=== PATIENT | female | born 1940 | race Caucasian/White ===

== ENCOUNTER 2019-12-14 15:03 | Outpatient (CLI) | payer MEDICARE, SELFPAY ==
--- NOTE | 2019-12-14 15:30 | CT_ITS ---
WS: [id number] CT LUMBAR SPINE TECHNIQUE: Noncontrast CT of the lumbar spine with coronal and sagittal reformatted images. CLINICAL INFORMATION: Low back pain COMPARISON: DLP: 1837.[address] scans at [facility] use at least one of these dose optimization techniques: automat ed exposure control; mA and/or kV adjustment per patient size (includes targeted exams where dose is matched to clinical indication); or iterative reconstruction. FINDINGS: Again seen is moderate to severe compression of the inferior endplate L1 with 50-60% loss vertebral b juan height. This is not significantly changed from previous. Additional moderate compression L4 infer ior endplate with loss of approximately 50% vertebral body height also similar in appearance. No sign ificant retropulsion. In addition there is biconcave compression of the T12 vertebral body with loss of approximately 60% vertebral body height centrally. Minimal retropulsion posterior superior cortex with mild central can al stenosis. T12 was not included on the prior CT lumbar spine. This does appear new since the MRI Se pt2017. No significant surrounding paravertebral edema. T11-T12: Mild disc bulging with slight effacement of the ventral thecal sac.. Mild bilateral foramina l narrowing. Mild central canal stenosis. T12-L1: Mild annular bulging. Mild facet arthropathy. Spinal canal and foramen are patent. L1-L2: Mild annular bulging. Spinal canal is patent. Tiny left foraminal protrusion with mild left fo raminal narrowing. L2-L3: Advanced disc space narrowing with disc osteophyte complex. Slight effacement of ventral theca l sac with narrowing of the subarticular recess. Mild right greater than left foraminal narrowing. Mi ld facet arthropathy. L3-L4: Moderate diffuse annular bulging in combination with facet arthropathy and ligamentum flavum h ypertrophy results in moderate to severe central canal stenosis. This is unchanged. Mild bilateral fo raminal narrowing. L4-L5: Disc desiccation with vacuum disc phenomenon. Disc bulging in combination with facet arthropat hy ligament flavum hypertrophy results in severe central canal stenosis. This is unchanged since March 24, 2019. Severe bilateral foraminal narrowing impinges the exiting left greater than right L4 nerve roots. Moderate facet arthropathy. L5-S1: Mild disc bulging with slight effacement of ventral thecal sac. Impingement on the right S1 ne rve root. Mild right and no significant left foraminal narrowing. Moderate facet arthropathy. Emphysematous changes in the lung bases. Dense aortic calcification and proximal renal artery calcifi cation. No significant abdominal aortic aneurysm. CT/CT lumbar spine wo con* [id number] IMPRESSION: 1. Compression fractures inferior endplate at L1 and L4 not significantly haskins ged since March 24, 2019. 2. Biconcave compression fracture at T12 with loss of approximately 60% verteb ral body height centrally. T12 was not included on the prior CT but this is lik leyla chronic. No significant surrounding paravertebral soft tissue edema to jael linwood recent compression. This is new since the MRI in 2018 3. Minimal retropulsion of the posterior superior cortex at T12 with mild cent ral canal stenosis. 4. Moderate central canal stenosis L3-4 and severe central canal stenosis L4-5 is unchanged. 5. Multilevel foraminal narrowing described above.
== END 2019-12-14 15:04 | disposition home or self-care (01) ==
LOC: RADWPI 15:13
PROVIDERS: Family Provider Family Medicine; PCP Family Medicine; Visit Provider Licensed Practical Nurse
DX: M54.5 Low back pain (principal); M48.56XA Collapsed vertebra, not elsewhere classified, lumbar region, initial encounter for fracture; X58.XXXA Exposure to other specified factors, initial encounter; M48.061 Spinal stenosis, lumbar region without neurogenic claudication
CPT/HCPCS: 72131

== ENCOUNTER → 2020-02-29 13:18 | Outpatient (BNVA) | payer MEDICARE, SELFPAY | PROVIDERS: Family Provider Family Medicine; PCP Family Medicine; Visit Provider Specialist | DX: G30.9 Alzheimer's disease, unspecified (principal); F02.80 Dementia in other diseases classified elsewhere, unspecified severity, without behavioral disturbance, psychotic disturbance, mood disturbance, and anxiety | CPT/HCPCS: 99214 ==

== ENCOUNTER 2020-11-16 05:52 | Emergency (ER) | payer MEDICARE, SELFPAY ==
[2020-11-16 06:06] VITALS: BP 132/77; PULSE 81; RESP 16; TEMP 36.7; O2SAT 96; BMI 28.3
[2020-11-16 06:37] VITALS: BP 143/81; PULSE 82; O2SAT 96
--- NOTE | 2020-11-16 06:42 | ED_ITS ---
HPI - Back Pain/Injury General: Chief Complaint: Back Pain/Injury Stated Complaint: compression fracture,bulging disk, can't get up Time Seen by Provider: 11/16/20 05:55 History of Present Illness: HPI Narrative: 80-year-old female presents to the emergency room with complaint of low back pain. She was recently admitted to [facility] for similar symptoms and was there for 2 days. Approximately 3 years ago evidently she had a compression fracture she had a CT while at [place] and per her report had other compression fractures. She denies any recent falls. No falls since leaving the hospital in [place]. She denies dysuria urgency or frequency denies shortness of breath or chest pain. When seen in the exam room she is doubled over in a wheelchair and does not wish to sit up due to the pain. MD elicited complaint: back pain Pertinent past history: prior back pain and other (History lumbar compression fractures) Onset (ago): week(s) Timing: constant Severity: severe Similar Symptoms Previously: Yes Quality: sharp and spasming Location: lumbar spine Radiation: none Exacerbating factors: movement, sitting upright and walking Relieving factors: immobilization Associated symptoms: Reports arthralgias, difficulty walking, myalgias and weakness; Deny abdominal pain, chills, change in bowel habits, dysuria, fatigue, fecal incontinence, fever(s), hematuria, nausea, numbness, syncope, tingling/numbness/burning, urinary frequency, urinary urgency or vomiting Treatments prior to arrival: prescription analgesics Review of Systems Const: Denies: fever(s), chills or fatigue ENMT: Denies: throat pain, ear or mastoid pain, nasal discharge or nasal congestion Card: Denies: syncope Resp: Denies: dyspnea, productive cough or non-productive cough GI: Denies: abdominal pain, nausea, vomiting, fecal incontinence or change in bowel habits : Denies: dysuria, urinary urgency or hematuria Skin/Breast: Denies: rash or pruritus Neuro: Reports: difficulty walking PFS ED PFSH: Medical History (Updated 11/16/20 @ 09:36 by Arash Dodd DO) Alzheimer's dementia without behavioral disturbance Anticoagulation adequate with anticoagulant therapy Eliquis Atrial fibrillation CKD (chronic kidney disease) Dyslipidemia HTN (hypertension) Lumbar compression fracture Lumbar stenosis with neurogenic claudication Surgical History (Updated 11/16/20 @ 06:47 by Arash Dodd DO) History of cholecystectomy (~2014) History of hip surgery (~2019) Closed reduction with intramedullary nailing with proximal and distal interlocking to treat left intertrochanter hip fracture History of tonsillectomy Family History Father Stroke Mother Lung cancer Social History Smoking and tobacco status: never smoked Alcohol intake: never Household members: family Housing: House Marital status: / Current occupational status: retired History of recent travel: No Physical Exam HENMT: COMMON NORMALS: normocephalic, atraumatic and hearing grossly normal bilaterally HEAD & SCALP: normocephalic and atraumatic Neck/C-Spine: COMMON NORMALS: no JVD Resp: COMMON NORMALS: normal respiratory effort, No retractions, No use of accessory muscles and clear to auscultation bilaterally AUSCULTATION: clear to auscultation bilaterally Cardio: COMMON NORMALS: no JVD, regular rate, regular rhythm and No murmurs present (Cardio) RATE: regular rate RHYTHM: regular rhythm Extremity: COMMON NORMALS: normal to inspection, capillary refill normal, no clubbing, cyanosis or edema, no calf tenderness and no pedal edema Neuro: OTHER: Dorsum plantar flex strength 5 of 5 at the ankles. Sensation normal straight leg raising negative Course Vital Signs: Vital signs: Vital Signs Temperature 98.1 F 11/16/20 06:06 Pulse Rate 88 11/16/20 10:41 Respiratory Rate 18 11/16/20 10:41 Blood Pressure 147/77 11/16/20 10:41 Pulse Oximetry 98 11/16/20 10:41 MDM - Back Pain/Injury MDM Narrative: Medical decision making narrative: Reviewed findings the patient T11 fracture still present reviewed the CT done at [place] as well. There is really nothing to be done on an inpatient basis we will try to get her set up an outpatient basis with Dr. Smith for evaluation for kyphoplasty. They are concerned about her functional daily abilities they already have home health. Offered to look at getting her placed in the [facility] however in the current pandemic environment that will be very difficult. We will increase her home pain medications and have case management review to see if she can find other options for patient assistance at home. Offered to have case management set up for [facility] placement today although I cautioned him that in this to the current environment with the pandemic that is exceedingly difficult. Had 2 prolonged conversations over 20 minutes each discussing this. He was hoping that we would be admit the patient emergently do a kyphoplasty discussed with him that Lorena how a kyphoplasty is done is usually done as an outpatient after outpatient consultation. While we are in the room her pain is well controlled she is able to sit up and even at times wants to get up into the bed. He is quite concerned whether or not he be able to care for at home which is why we had offered the [facility] placement. When I offer this is she he states that he can do all of that care at home on his own and that it really would not change anything significantly. We will try to get her set up with Dr. Smith as soon as we are able because any worsening or change she can return to be reevaluated. Discussed with him that the CT does not show significant change. Lab Data: Labs: Lab Results 11/16/20 11/16/20 11/16/20 Range/Units 06:47 06:47 06:48 WBC 10.0 (4.0-10.0) 10^3/ uL RBC 3.83 L (4.1-5.3) 10^6/u L Hgb 12.7 (11.5-15.3) g/dL Hct 38.9 (37.0-47.0) % MCV 101.6 H (81-99) fL MCH 33.2 (28.0-34.0) pg MCHC 32.6 (30.0-36.0) g/dL RDW 13.5 (12.1-15.1) % Plt Count 271 (130-400) 10^3/c mm MPV 9.5 (7.4-10.4) fL Neut % (Auto) 61.2 % Lymph % (Auto) 26.4 % [place] % (Auto) 8.9 % Eos % (Auto) 1.4 % Baso % (Auto) 0.6 % Neut # (Auto) 6.10 (1.8-7.7) 10^3/u L Lymph # (Auto) 2.6 (0.8-4.8) 10^3/u L [place] # (Auto) 0.9 (0.2-0.9) 10^3/u L Eos # (Auto) 0.1 (0.0-0.8) 10^3/u L Baso # (Auto) 0.1 (0.0-0.1) 10^3/u L Nucleated RBC % (a uto) 0 % Nucleated RBCs # 0.0 /100WBC Sodium 135 L (136-145) mmol/L Potassium 3.7 (3.5-5.1) mmol/L Chloride 98 (98-107) mmol/L Carbon Dioxide 28 (22-29) mmol/L Anion Gap 12.7 (5-19) BUN 10 (8-23) mg/dL Creatinine 0.6 (0.5-0.9) mg/dL GFR Calculation Not Reportable Glucose 109 (65-115) mg/dL Calculated Osmolal ity 280 L (285-295) mOsm/k g Calcium 9.1 (8.5-10.5) mg/dL Total Bilirubin 0.7 (0.15-1.2) mg/dL AST 39 H (0-32) U/L ALT 48 H (0-33) U/L Alkaline Phosphata se 219 H (35-105) IU/L Total Protein 6.9 (6.6-8.7) g/dL Albumin 3.6 (3.5-5.2) g/dL Globulin 3.3 (1.3-4.6) g/dL Urine Color Yellow (Yellow) Urine Appearance Clear (CLEAR) Urine pH 6.0 (5-7) Ur Specific Gravit y 1.010 (1.005-1.030) Urine Protein Neg (Negative) Urine Glucose (UA) Norm (Normal) Urine Ketones Negative (Negative) Urine Blood Neg (Negative) Urine Nitrate Negative (Negative) Urine Bilirubin Neg (Negative) Urine Urobilinogen 1 H (Negative) mg/dL Ur Leukocyte [place] Negative (Negative) Discharge Plan Discharge Patient Disposition: Home Clinical Impression: Compression fracture of thoracic spine, non-traumatic, Alzheimer's dementia without behavioral disturbance Condition: Stable Prescriptions: New hydrocodone-acetaminophen 10-325 mg tablet See Rx Instructions .ROUTE .COMPLEX PRN (Reason: pain) Qty: 30 RF: 0 No Action donepezil 10 mg tablet 10 mg PO QDAY Qty: 30 RF: 11 cetirizine 10 mg capsule PO RF: 0 meloxicam 15 mg tablet 15 mg PO DAILY RF: 0 gabapentin 300 mg capsule 300 mg PO BID RF: 0 potassium chloride 10 mEq tablet extended release 10 meq PO QDAY RF: 0 diltiazem HCl 90 mg capsule,extended release 12 hr 90 mg PO TID RF: 0 hydrocodone-acetaminophen 10-325 mg tablet 1 tab PO Q4H PRNRF: 0 furosemide 20 mg tablet 20 mg PO QDAY RF: 0 alprazolam 0.5 mg tablet 0.5 mg PO QID PRN (Reason: anxiety) RF: 0 carvedilol 6.25 mg tablet 6.25 mg PO BID RF: 0 levothyroxine 25 mcg capsule 25 mcg PO QDAY RF: 0 bupropion HCl 150 mg tablet sustained-release 12 hr 150 mg PO BID RF: 0 vitamin D3-vitamin K2 (MK4) 1,000-100 unit-mcg tablet 1 tab PO QDAY RF: 0 Eliquis 5 mg tablet 5 mg PO BID 90 Days Qty: 180 RF: 3 Discharge Orders: Discharge ED (Routine); Ordered 11/16/20 Ordered By: Arash Dodd Referrals: Bianka Lowery DO [Primary Care Provider] - Discharge Activity: Limit activity as instructed Activity Restrictions/Additional Instructions: Case management will call with appointment for Dr. Smith for evaluation for kyphoplasty. Increase pain medications to 1-2 every 4 to 6 hours as needed follow-up with your primary care doctor Coding Level of Care Code ED Learning Support Resource Room Teacher for Chg Fwd Exam Detailed
[2020-11-16 07:08] LABS: Basophils # 0.1 10^3/uL (0.0-0.1); Basophils % 0.6 %; Eosinophils # 0.1 10^3/uL (0.0-0.8); Eosinophils % 1.4 %; Hematocrit 38.9 % (37.0-47.0); Hemoglobin 12.7 g/dL (11.5-15.3); Lymphocytes # 2.6 10^3/uL (0.8-4.8); Lymphocytes % 26.4 %; Mean Corpuscular HGB Conc 32.6 g/dL (30.0-36.0); Mean Corpuscular Hemoglobin 33.2 pg (28.0-34.0); Mean Corpuscular Volume 101.6 fL (81-99); Mean Platelet Volume 9.5 fL (7.4-10.4); Monocytes # 0.9 10^3/uL (0.2-0.9); Monocytes % 8.9 %; Neutrophils % 61.2 %; Nucleated Red Blood Cells % 0 %; Platelet Count 271 10^3/cmm (130-400); Red Blood Count 3.83 10^6/uL (4.1-5.3); Red Cell Distribution Width 13.5 % (12.1-15.1)
[2020-11-16] MEDS: morphine 4 mg/mL SDV 1 mL IVP (07:08)
[2020-11-16 07:10] LABS: Add Urine Microscopic? NO
[2020-11-16 07:18] LABS: Bilirubin Urine Neg (Negative); Blood Urine Neg (Negative); Glucose Urine UA Norm (Normal); Ketones Urine Negative (Negative); Leukocyte Esterase Urine Negative (Negative); Nitrate Urine Negative (Negative); Protein Urine Neg (Negative); Urine Appearance Clear (CLEAR); Urine Color Yellow (Yellow); Urobilinogen Urine 1 mg/dL (Negative)
[2020-11-16 07:26] LABS: Alanine Aminotransferase 48 U/L (0-33); Albumin Level 3.6 g/dL (3.5-5.2); Alkaline Phosphatase 219 IU/L (35-105); Anion Gap 12.7 (5-19); Aspartate Amino Transferase 39 U/L (0-32); Blood Urea Nitrogen 10 mg/dL (8-23); Calcium 9.1 mg/dL (8.5-10.5); Carbon Dioxide 28 mmol/L (22-29); Chloride 98 mmol/L (98-107); Globulin 3.3 g/dL (1.3-4.6); Glucose 109 mg/dL (65-115); Osmolality Calculated 280 mOsm/kg (285-295); Potassium 3.7 mmol/L (3.5-5.1); Sodium 135 mmol/L (136-145); Total Bilirubin 0.7 mg/dL (0.15-1.2); Total Protein 6.9 g/dL (6.6-8.7)
--- NOTE | 2020-11-16 07:58 | CT_ITS ---
WS: [id number] CT LUMBAR SPINE TECHNIQUE: Noncontrast CT of the lumbar spine with coronal and sagittal reformatted images. CLINICAL INFORMATION: compression fx COMPARISON: CT December 14, 2019 DLP: 1868.[address] scans at [facility] use at least one of these dose optimization techniques: automat ed exposure control; mA and/or kV adjustment per patient size (includes targeted exams where dose is matched to clinical indication); or iterative reconstruction. FINDINGS: Mild lumbar curve. Multiple chronic appearing compression deformities unchanged since December 14 20 at T12, L1, and L4 with anterior wedging. No new compression fractures in the lumbar spine. No hig h-grade central canal stenosis. L1-L2: Normal. L2-L3: Disc desiccation with mild disc bulging. Spinal canal and foramen are patent. L3-L4: Mild disc bulging with a broad-based central protrusion. Moderate central canal stenosis. Mild right greater than left foraminal narrowing. Mild facet arthropathy. L4-L5: Mild disc bulging with moderate to severe central canal stenosis. Broad-based central disc pro trusion. Impingement traversing L5 nerve roots. Mild facet arthropathy. Moderate to severe bilateral foraminal narrowing. L5-S1: Mild disc bulging with slight effacement of ventral thecal sac. Mild bilateral foraminal narro wing right greater than left. Small bilateral pleural effusions. Visualized pelvic bony structures: Normal. Paravertebral soft tissues: Normal. CT/CT lumbar spine wo con* [id number] IMPRESSION: 1. Multiple chronic appearing compression fractures lumbar spine unchanged sin ce December 14, 2019 these are unchanged at T12, L1, and L4. 2. Moderate central canal stenosis L3-4 and severe central canal stenosis L4-5 due to broad-based central disc protrusions. 3. Moderate bilateral L4-5 foraminal protrusions.
--- NOTE | 2020-11-16 07:58 | CT_ITS ---
WS: [id number] CT THORACIC SPINE TECHNIQUE: Noncontrast CT of the thoracic spine with coronal and sagittal reformatted images. CLINICAL INFORMATION: compression fx/back pain COMPARISON: None. DLP: 1621.[address] scans at [facility] use at least one of these dose optimization techniques: automat ed exposure control; mA and/or kV adjustment per patient size (includes targeted exams where dose is matched to clinical indication); or iterative reconstruction. FINDINGS: No prior thoracic spine comparisons. Moderate thoracic kyphosis. Mild compression superior endplate T 11 with a small fracture cleft. Loss of approximately 10% vertebral body height. This is likely acute to subacute. No retropulsion. Additional chronic appearing compression fractures with anterior wedgi ng at T6, T8, and T12. Small bilateral pleural effusions. CT/CT thoracic spin wo con* [id number] IMPRESSION: 1. Moderate thoracic kyphosis with multiple compression deformities. 2. Acute to subacute appearing fracture of the superior endplate T11 with mini mal loss vertebral body height. No retropulsion. 3. Chronic appearing compression fractures anterior wedging at T6, T8, and T12 . 4. No high-grade central canal stenosis. 5. Small bilateral pleural effusions.
[2020-11-16] MEDS: morphine 4 mg/mL SDV 1 mL 6 MG IVP (08:18)
[2020-11-16 08:47] VITALS: BP 157/77; PULSE 88; RESP 18; O2SAT 95
[2020-11-16 09:47] VITALS: BP 147/77; PULSE 88; RESP 18; O2SAT 98
[2020-11-16 10:41] VITALS: BP 147/77; PULSE 88; RESP 18; O2SAT 98
--- NOTE | 2020-11-16 15:09 | DCPLANNER ---
mortgage processing manager was asked to schedule a follow up appointment for patient with Dr. Smith at ortho. mortgage processing manager called the ortho clinic, spoke with Tawnya, gave clinic patients information. mortgage processing manager was told that patients information would be printed and reviewed. Clinic will call patient with appointment information.
--- NOTE | 2020-11-19 16:02 | DCPLANNER ---
Patient has a follow up appointment scheduled for Thursday, November 20, 2020 at 1:[address] Smith. Clinic will call patient with appointment information.
--- NOTE | 2020-11-23 14:49 | DCPLANNER ---
Patient had a follow up appointment scheduled for 11.20.20 with ortho - patient did attend appointment.
== END 2020-11-16 10:41 | disposition home or self-care (01) ==
PROVIDERS: Emergency Provider Family Medicine; PCP Family Medicine
DX: M48.54XA Collapsed vertebra, not elsewhere classified, thoracic region, initial encounter for fracture (principal); G30.9 Alzheimer's disease, unspecified; F02.80 Dementia in other diseases classified elsewhere, unspecified severity, without behavioral disturbance, psychotic disturbance, mood disturbance, and anxiety; Z79.01 Long term (current) use of anticoagulants; I48.91 Unspecified atrial fibrillation; I10 Essential (primary) hypertension; E78.5 Hyperlipidemia, unspecified
CPT/HCPCS: 12345; 72128; 72131; 80053; 81003; 85025; 96374; 96375; 99283; J2270

== ENCOUNTER → 2020-12-13 12:14 | Outpatient (BNVA) | payer MEDICARE, SELFPAY | PROVIDERS: PCP Family Medicine; Visit Provider Orthopaedic Surgery | DX: Z20.822 Contact with and (suspected) exposure to COVID-19 (principal) | CPT/HCPCS: 87635 ==

== ENCOUNTER 2020-12-17 10:38 | Day surgery (SDC) | payer MEDICARE, SELFPAY ==
[2020-12-14 15:43] VITALS: BMI 22.3
--- NOTE | 2020-12-17 | SCC_ITS ---
Procedure Done: T8 kyphoplasty T11 kyphoplasty L1 Kyphoplasty 54.7 seconds of fluoroscopic guidance, for a cumulative dose of 6.48 mGy, was provided to Dr. Smith by the radiology department. C-arm images of the thoracolumbar junction were saved for the patient's permanent record. [facility]
--- NOTE | 2020-12-17 09:45 | ANES.PREANE2 ---
Pre-Anesthetic Assessment Pre-Anesthetic Assessment: Height/Weight: Height 1.65 m Weight 60.781 kg Preop Diagnosis: back pain Proposed Procedure: Operation Date: 12/17/20 11:45 Proposed Procedures p Kyphoplasty T8, T11, & L1/ 12513 [id number] S32.000A S22.000A(Not Applicable) - Malachi Smith DO Familial anesthetic complications: none Was Beta Yaa taken within 24 hours: Yes Last intake: NPO > 8 hrs Social: Social History: No alcohol and No tobacco Exam: Pre-Anes Outpt Exam: alert, oriented x 3, clear to auscultation bilaterally and regular rate & rhythm Airway: Cervical ROM: WNL MP: 3 Dentition: Loose and Other (multiple missing teeth) CV/HEM: CV/HEM: Afib and HTN : : Chronic renal Insufficiency Metabolic: Metabolic: Hyperlipidemia and Thyroid Anesthetic Plan: ASA status: 3 Anesthesia: General Risk of > 500 ml blood loss (7ml/kg in children): No PFSH Anesthesia PFSH: Medical History Alzheimer's dementia without behavioral disturbance Anticoagulation adequate with anticoagulant therapy Eliquis Atrial fibrillation CKD (chronic kidney disease) Dyslipidemia HTN (hypertension) Lumbar compression fracture Lumbar stenosis with neurogenic claudication Surgical History History of cholecystectomy (~2013) History of hip surgery (~2019) Closed reduction with intramedullary nailing with proximal and distal interlocking to treat left intertrochanter hip fracture History of tonsillectomy Family History Father Stroke Mother Lung cancer Social History Smoking and tobacco status: never smoked Alcohol intake: never Household members: family Housing: House Marital status: / Current occupational status: retired History of recent travel: No Data Anesthesia Cardiac Studies: No Data to Display
--- NOTE | 2020-12-17 10:43 | SC_ITS ---
WS: [id number] C-ARM RADIOGRAPHS SPINE; 5 IMAGES HISTORY: surgery COMPARISON: None available. Intraoperative imaging during kyphoplasty. Kyphoplasty have been performed at 3 different levels. SC/C-arm FL for Kyphoplasty IMPRESSION: Intraoperative imaging during kyphoplasty's.
[2020-12-17] MEDS: sodium chloride 0.9% 1,000 ML 30 ML IV (12:07)
--- NOTE | 2020-12-17 12:36 | W.PM.OPSUD ---
Surgery/Procedure H&P Update DATE OF PROCEDURE: December 17, 2020 DATE H&P PERFORMED: 12/13/20 H&P UPDATE INFORMATION: I have reviewed H&P completed within last 30 days, I have examined patient prior to procedure and No changes to prior documentation PREOP DIAGNOSIS: back pain PLANNED PROCEDURE: Operation Date: 12/17/20 11:45 Proposed Procedures p Kyphoplasty T8, T11, & L1/ [id number] S32.000A S22.000A(Not Applicable) - Malachi Smith DO
[2020-12-17] MEDS: clindamycin 600 MG/50 ML PREMIX 100 MG IV (12:55)
[2020-12-17] MEDS: iohexol 300 mg/mL 50 mL Btl (OR ONLY) XX (14:00)
--- NOTE | 2020-12-17 14:14 | PM.OP ---
Operative Report Date of procedure: December 17, 2020 Pre-op Diagnosis: T8, T11, L1 acute compression fracture Post-op diagnosis: same Procedure Done: T8 kyphoplasty T11 kyphoplasty L1 Kyphoplasty Surgeon: Malachi Smith Anesthesia: General Estimated blood loss (mL): 5 Condition: stable Disposition: PACU Procedure: T8 kyphoplasty T11 kyphoplasty L1 Kyphoplasty Patient brought to the operative suite after undergoing anesthesia was placed in the prone position all areas impingement well-padded. Patient's prepped and draped normal sterile fashion. Using 2C arms AP and lateral images were focused on the T11 segment first. A Jamshidi needle was then inserted into the T11 pedicle on the left side. Then a drill was inserted. And then a balloon was inserted and inflated. This is observed on AP and lateral fluoroscopy. Next attention was brought to the L1 level this steps were repeated. And balloon was inflated in the L1 level. And then cement was placed into the T11 and L1 levels. Done under lateral fluoroscopy. Once the cement hardened the tubes removed and the process was then brought up to the T8 level. Again the Jamshidi was inserted followed by the drill followed by the balloon and then cement. Was a cement was hardened and the surgeon to was removed. AP lateral fluoroscopy ensured that cement was in appropriate position. Stab incisions were closed with Steri-Strips and patient was transferred to the PACU in stable condition.
[2020-12-17 14:27] VITALS: BP 105/78; PULSE 111; RESP 12; TEMP 36.1; O2SAT 100
--- NOTE | 2020-12-17 14:32 | P.PCN_ITS ---
PACU note PACU note: VSS, Good respiratory effort, report to FLEXIBLE BABYSITTER Post-Anesthesia Exam: awake
--- NOTE | 2020-12-17 14:32 | PM.PACU ---
PACU note PACU note: VSS, Good respiratory effort, report to ZONE MANAGER Post-Anesthesia Exam: awake
[2020-12-17 14:35] VITALS: BP 92/57; PULSE 130; RESP 12; O2SAT 100
[2020-12-17 14:40] VITALS: BP 115/58; PULSE 131; RESP 20; O2SAT 100
[2020-12-17 14:45] VITALS: BP 128/62; PULSE 135; RESP 14; TEMP 36.6; O2SAT 96
[2020-12-17 14:52] VITALS: BP 116/85; PULSE 124; RESP 18; O2SAT 100
[2020-12-17 15:12] VITALS: BP 107/80; PULSE 119; RESP 18; O2SAT 98
--- NOTE | 2020-12-17 15:48 | ANE.PACU2 ---
Inpatient post-anesthesia follow up: Airway intact: Yes Vital signs: Temperature 98 F Pulse Rate 119 Respiratory Rate 18 Blood Pressure 107/80 Pulse Oximetry 98 Oxygen Delivery Me thod Room Air Oxygen Flow Rate 8 Fraction of Inspir ed Oxygen Hydration adequate: Yes Nausea and vomiting: No Pain level: 1 Mental status: Baseline
== END 2020-12-17 16:28 | disposition home or self-care (01) ==
PROVIDERS: PCP Family Medicine; Visit Provider Orthopaedic Surgery
PROC: (CPT 22513; principal; 2020-12-17 11:35)
DX: M48.54XA Collapsed vertebra, not elsewhere classified, thoracic region, initial encounter for fracture (principal); M48.56XA Collapsed vertebra, not elsewhere classified, lumbar region, initial encounter for fracture; I48.91 Unspecified atrial fibrillation; E78.5 Hyperlipidemia, unspecified; I12.9 Hypertensive chronic kidney disease with stage 1 through stage 4 chronic kidney disease, or unspecified chronic kidney disease; N18.9 Chronic kidney disease, unspecified
CPT/HCPCS: 22513; 22515 ×2; 72080; 76000; J1100; J2370; J2405; J2704; J2710; J3010; J3490; J7030

== ENCOUNTER → 2021-01-21 14:04 | Outpatient (BNVA) | payer MEDICARE, SELFPAY | PROVIDERS: PCP Family Medicine; Visit Provider Anesthesiology Pain Medicine | DX: M54.16 Radiculopathy, lumbar region (principal); M48.062 Spinal stenosis, lumbar region with neurogenic claudication; S32.000A Wedge compression fracture of unspecified lumbar vertebra, initial encounter for closed fracture; X58.XXXA Exposure to other specified factors, initial encounter; Z79.891 Long term (current) use of opiate analgesic | CPT/HCPCS: 99205 ==

== ENCOUNTER 2021-02-12 13:05 | Outpatient (RCR) | payer MEDICARE, SELFPAY | END 2021-03-01 23:59 | disposition home or self-care (01) | LOC: SPT 13:05 | PROVIDERS: PCP Family Medicine; Referring Provider Orthopaedic Surgery; Visit Provider Orthopaedic Surgery | DX: Z47.89 Encounter for other orthopedic aftercare (principal) | CPT/HCPCS: 97110; 97116; 97162; 97530 ==

== ENCOUNTER 2021-03-02 06:00 | Outpatient (RCR) | payer MEDICARE, SELFPAY | END 2021-04-01 23:59 | disposition home or self-care (01) | LOC: SPT 06:00 | PROVIDERS: PCP Family Medicine; Referring Provider Orthopaedic Surgery; Visit Provider Orthopaedic Surgery | DX: Z47.89 Encounter for other orthopedic aftercare (principal) | CPT/HCPCS: 97110 ==

== ENCOUNTER → 2021-06-24 15:30 | Outpatient (BNVA) | payer MEDICARE, SELFPAY | PROVIDERS: PCP Family Medicine; Visit Provider Specialist | DX: G30.9 Alzheimer's disease, unspecified (principal); F02.80 Dementia in other diseases classified elsewhere, unspecified severity, without behavioral disturbance, psychotic disturbance, mood disturbance, and anxiety | CPT/HCPCS: 99214 ==

== ENCOUNTER → 2021-10-01 15:11 | Outpatient (BNVA) | payer MEDICARE, SELFPAY | PROVIDERS: PCP Family Medicine; Visit Provider Specialist | DX: G30.9 Alzheimer's disease, unspecified (principal); F02.80 Dementia in other diseases classified elsewhere, unspecified severity, without behavioral disturbance, psychotic disturbance, mood disturbance, and anxiety | CPT/HCPCS: 99213; 99214 ==

== ENCOUNTER 2021-11-19 15:03 | Emergency (ER) | payer MEDICARE, SELFPAY ==
--- NOTE | 2021-11-19 15:19 | ED_ITS ---
Documented by User: Arash Dodd DO 11/27/21 11:16 HPI - General Adult General: Chief complaint: COVID symptoms Stated complaint: DEMENTIA, SICK, FEVER Time Seen by Provider: 11/19/21 15:12 History of Present Illness: HPI narrative: 81-year-old female who presents to the emergency room with via EMS complaining of increased weakness and confusion fever. Family stated that she had some kind of viral illness and wants her to be seen. Patient has a history of dementia. She is able to relate that she lives at home but is not really able to give any other specific she denies any chest pain difficulty breathing denies any abdominal pain denies dysuria urgency or frequency however not sure how accurate these responses are. She is in a somewhat position and is difficult to engage in anything other than yes or no questions. Onset (ago): minute(s) Location: chest Severity: mild Pain Consistency: constant Relieving factors: none Exacerbating factors: none Associated symptoms: Reports cough; Deny chest pain, confusion, diaphoresis, decreased appetite, dyspnea, fevers/chills, headache(s), malaise, nausea, rash, palpitations, seizures, short of breath, syncope, vomiting or weakness Treatments prior to arrival: none Review of Systems Const: Denies: malaise or diaphoresis Card: Denies: chest pain, palpitations or syncope Resp: Denies: dyspnea GI: Denies: nausea or vomiting Skin/Breast: Denies: rash Neuro: Denies: headache(s) or confusion PFSH ED PFSH: Medical History Alzheimer's dementia without behavioral disturbance Anticoagulation adequate with anticoagulant therapy Eliquis Atrial fibrillation CKD (chronic kidney disease) Dyslipidemia HTN (hypertension) Lumbar compression fracture Lumbar stenosis with neurogenic claudication Surgical History History of cholecystectomy (~2013) History of hip surgery (~2019) Closed reduction with intramedullary nailing with proximal and distal interlocking to treat left intertrochanter hip fracture History of tonsillectomy Family History Father Stroke Mother Lung cancer Social History (Reviewed 11/19/21 @ 15:59 by KRISSY Bailey Second hand smoke exposure: No Alcohol intake: never Household members: family Housing: House Marital status: / Current occupational status: retired History of recent travel: No Physical Exam Const: GENERAL APPEARANCE: cooperative and comfortable ORIENTAT ION/CONSCIOUSNESS: Yes awake HENMT: COMMON NORMALS: normocephalic, atraumatic and hearing grossly normal bilaterally HEAD & SCALP: normocephalic and atraumatic Neck/C-Spine: COMMON NORMALS: no JVD Resp: COMMON NORMALS: normal respiratory effort, No retractions, No use of accessory muscles and clear to auscultation bilaterally AUSCULTATION: clear to auscultation bilaterally Cardio: COMMON NORMALS: no JVD, regular rate, regular rhythm and No murmurs present (Cardio) RATE: regular rate RHYTHM: regular rhythm GI: COMMON NORMALS: Soft to palpation and No hepatosplenomegaly present AUSCULTATION: Yes normoactive bowel sounds PALPATION: Yes Soft to palpation, No Tenderness to palpation present (GI), No Guarding due to palpation present (GI) and Yes No hepatosplenomegaly present Extremity: COMMON NORMALS: normal to inspection, capillary refill normal, no clubbing, cyanosis or edema, no calf tenderness and no pedal edema Skin: COMMON NORMALS: no rashes or lesions noted GENERAL SKIN EXAM: no rashes or lesions noted Course Vital Signs: Vital signs: Vital Signs Temperature 100.3 F H 11/19/21 15:27 Pulse Rate 89 11/19/21 22:43 Respiratory Rate 16 11/19/21 22:43 Blood Pressure 122/63 11/19/21 22:43 Pulse Oximetry 97 11/19/21 22:43 MDM - General Adult MDM Narrative Medical decision making narrative: Labs imaging and EKGs reviewed on the chart. Patient has COVID-19 with oxygen supplementation is doing well will discharge home with oxygen and dexamethasone monitor home O2 sats if has any worsening return to the emergency room.Follow-up with primary care tomorrow. Medical Records Attestation: I reviewed the patient's medical records. Lab Data Attestation: I reviewed the patient's lab results. Result diagrams: 11/19/21 19:50 11/19/21 19:50 Labs: Lab Results 11/19/21 11/19/21 11/19/21 15:38 17:28 19:50 WBC 6.1 10^3/uL 10^3/uL (4.0-10.0) RBC 3.99 10^6/uL L 10^6/uL (4.1-5.3) Hgb 12.8 g/dL g/dL (11.5-15.3) Hct 37.7 % % (37.0-47.0) MCV 94.5 fl fl (81-99) MCH 32.1 pg pg (28.0-34.0) MCHC 34.0 g/dL g/dL (30.0-36.0) RDW 13.7 % % (12.1-15.1) Plt Count 258 10^3/cmm 10^3/cmm (130-400) MPV 9.4 fL fL (7.4-10.4) Neut % (Auto) 56.0 % % Lymph % (Auto) 18.0 % % [place] % (Auto) 20.9 % % Eos % (Auto) 3.4 % % Baso % (Auto) 1.0 % % Neut # (Auto) 3.43 10^3/uL 10^3/uL (1.8-7.7) Lymph # (Auto) 1.1 10^3/uL 10^3/uL (0.8-4.8) [place] # (Auto) 1.3 10^3/uL H 10^3/uL (0.2-0.9) Eos # (Auto) 0.2 10^3/uL 10^3/uL (0.0-0.8) Baso # (Auto) 0.1 10^3/uL 10^3/uL (0.0-0.1) Nucleated RBC % (auto) 0 % % Nucleated RBCs # 0.0 /100WBC /100WBC D-Dimer Specimen Type Arterial Sample Site Brachial, right ABG pH 7.49 H (7.35-7.45) ABG pCO2 39.1 mmHg mmHg (35-45) ABG pO2 58.3 mmHg L mmHg (80.0-100.0) ABG HCO3 29.7 mmol/L H mmol/L (22-26) ABG O2 Saturation 91.9 ABG Base Excess 5.9 mmol/L H mmol/L (-2.0-2.0) Garrett Test N/a A-a O2 Gradient 5.5 mmHg mmHg (5-10) Hematocrit 38.6 % % (37-47) Hgb O2 Saturation 90.7 % L % (95-100) Carboxyhemoglobin 1.0 %THgb %THgb (0.4-20.1) Methemoglobin 0.3 % L % (0.4-1.5) Total Hemoglobin 12.6 g/dL g/dL (12-16) Sodium 136.0 mmol/L mmol/L (131-143) Potassium 3.6 mmol/L mmol/L (3.5-5.0) Glucose 106.0 mg/dL mg/dL (70-115) Ionized Calcium 1.2 mmol/L mmol/L (1.1-1.4) O2 Delivery Device Room air FiO2 21.0 % % Transportation Manager ID Amh Chloride Carbon Dioxide Anion Gap BUN Creatinine GFR Calculation Calculated Osmolality Calcium Total Bilirubin AST ALT Alkaline Phosphatase Total Protein Albumin Globulin Procalcitonin Coronavirus 229E (PCR) Not detected (NOT DETECT) SARS-CoV-2 (PCR) Detected A (NOT DETECT) 11/19/21 11/19/21 19:50 19:50 WBC RBC Hgb Hct MCV MCH MCHC RDW Plt Count MPV Neut % (Auto) Lymph % (Auto) [place] % (Auto) Eos % (Auto) Baso % (Auto) Neut # (Auto) Lymph # (Auto) [place] # (Auto) Eos # (Auto) Baso # (Auto) Nucleated RBC % (auto) Nucleated RBCs # D-Dimer 0.80 ug/mIFEU H ug/mIFEU (0-0.59) Specimen Type Sample Site ABG pH ABG pCO2 ABG pO2 ABG HCO3 ABG O2 Saturation ABG Base Excess Garrett Test A-a O2 Gradient Hematocrit Hgb O2 Saturation Carboxyhemoglobin Methemoglobin Total Hemoglobin Sodium 134 mmol/L L mmol/L (136-145) Potassium 3.8 mmol/L mmol/L (3.5-5.1) Glucose 87 mg/dL mg/dL (65-115) Ionized Calcium O2 Delivery Device FiO2 Transportation Manager ID Chloride 96 mmol/L L mmol/L (98-107) Carbon Dioxide 25 mmol/L mmol/L (22-29) Anion Gap 16.8 (5-19) BUN 15 mg/dL mg/dL (8-23) Creatinine 0.9 mg/dL mg/dL (0.5-0.9) GFR Calculation Not Reportable Calculated Osmolality 278 mOsm/kg L mOsm/kg (285-295) Calcium 8.3 mg/dL L mg/dL (8.5-10.5) Total Bilirubin 0.3 mg/dL mg/dL (0.15-1.2) AST 25 U/L U/L (0-32) ALT 12 U/L U/L (0-33) Alkaline Phosphatase 117 IU/L H IU/L (35-105) Total Protein 6.9 g/dL g/dL (6.6-8.7) Albumin 3.5 g/dL g/dL (3.5-5.2) Globulin 3.4 g/dL g/dL (1.3-4.6) Procalcitonin 0.07 ng/mL ng/mL (0-0.5) Coronavirus 229E (PCR) SARS-CoV-2 (PCR) Discharge Plan Discharge Patient Disposition: Home Clinical Impression: COVID-19 Condition: Stable Prescriptions: No Action cetirizine 10 mg capsule 10 mg PO DAILY 0RF donepezil 10 mg tablet 10 mg PO DAILY Qty: 90 3RF Rx Instructions: Administer in the morning with breakfast ergocalciferol (vitamin D2) 1,250 mcg (50,000 unit) capsule 1,250 mcg PO DAILY 0RF bumetanide 2 mg tablet 2 mg PO BID 0RF gabapentin 300 mg capsule 300 mg PO BID 0RF diltiazem HCl 90 mg capsule,extended release 12 hr 90 mg PO TID 0RF alprazolam 0.5 mg tablet 0.5 mg PO QID PRN (Reason: anxiety) 0RF carvedilol 6.25 mg tablet 6.25 mg PO BID 0RF Rx Instructions: Take one and half tab BID with meals levothyroxine 25 mcg capsule 25 mcg PO QDAY 0RF calcitonin (salmon) 200 unit/actuation spray,non-aerosol 1 spray intranasal (ALT) DAILY 0RF Eliquis 5 mg tablet 5 mg PO BID Qty: 180 3RF Discharge Orders: Discharge ED (Routine); Ordered 11/19/21 Ordered By: Rosangela Hsu Other Ambulatory Orders: Request for MCA (Routine) Timeframe: 1 Day Facility: [facility] - Location: Outpatient Surgical Services Ordered By: Rosangela Hsu Referrals: Bianka Lowery DO [Primary Care Provider] - Discharge Diet: Advance as tolerated Discharge Activity: Resume usual activity Patient Instructions: Chest Pain (ED) Coding Level of Care Code ED Farm Laborer for Chg Fwd Exam Comprehensive Documented by User: Rosangela Hsu MD 11/19/21 22:15 HPI - General Adult General: Chief complaint: COVID symptoms Stated complaint: DEMENTIA, SICK, FEVER Time Seen by Provider: 11/19/21 15:12 PFSH ED PFSH: Medical History Alzheimer's dementia without behavioral disturbance Anticoagulation adequate with anticoagulant therapy Eliquis Atrial fibrillation CKD (chronic kidney disease) Dyslipidemia HTN (hypertension) Lumbar compression fracture Lumbar stenosis with neurogenic claudication Surgical History History of cholecystectomy (~2013) History of hip surgery (~2019) Closed reduction with intramedullary nailing with proximal and distal interlocking to treat left intertrochanter hip fracture History of tonsillectomy Family History Father Stroke Mother Lung cancer Social History Second hand smoke exposure: No Alcohol intake: never Household members: family Housing: House Marital status: / Current occupational status: retired History of recent travel: No Course Vital Signs: Vital signs: Vital Signs Temperature 100.3 F H 11/19/21 15:27 Pulse Rate 89 11/19/21 22:43 Respiratory Rate 16 11/19/21 22:43 Blood Pressure 122/63 11/19/21 22:43 Pulse Oximetry 97 11/19/21 22:43 MDM - General Adult MDM Narrative Medical decision making narrative: Patient presents here with COVID she is well-appearing here no distress not requiring any oxygen blood work is all normal she is stable for discharge is to follow-up with PCP and return if worsening. Lab Data Result diagrams: 11/19/21 19:50 11/19/21 19:50 Labs: Lab Results 11/19/21 11/19/21 11/19/21 15:38 17:28 19:50 WBC 6.1 10^3/uL 10^3/uL (4.0-10.0) RBC 3.99 10^6/uL L 10^6/uL (4.1-5.3) Hgb 12.8 g/dL g/dL (11.5-15.3) Hct 37.7 % % (37.0-47.0) MCV 94.5 fl fl (81-99) MCH 32.1 pg pg (28.0-34.0) MCHC 34.0 g/dL g/dL (30.0-36.0) RDW 13.7 % % (12.1-15.1) Plt Count 258 10^3/cmm 10^3/cmm (130-400) MPV 9.4 fL fL (7.4-10.4) Neut % (Auto) 56.0 % % Lymph % (Auto) 18.0 % % [place] % (Auto) 20.9 % % Eos % (Auto) 3.4 % % Baso % (Auto) 1.0 % % Neut # (Auto) 3.43 10^3/uL 10^3/uL (1.8-7.7) Lymph # (Auto) 1.1 10^3/uL 10^3/uL (0.8-4.8) [place] # (Auto) 1.3 10^3/uL H 10^3/uL (0.2-0.9) Eos # (Auto) 0.2 10^3/uL 10^3/uL (0.0-0.8) Baso # (Auto) 0.1 10^3/uL 10^3/uL (0.0-0.1) Nucleated RBC % (auto) 0 % % Nucleated RBCs # 0.0 /100WBC /100WBC D-Dimer Specimen Type Arterial Sample Site Brachial, right ABG pH 7.49 H (7.35-7.45) ABG pCO2 39.1 mmHg mmHg (35-45) ABG pO2 58.3 mmHg L mmHg (80.0-100.0) ABG HCO3 29.7 mmol/L H mmol/L (22-26) ABG O2 Saturation 91.9 ABG Base Excess 5.9 mmol/L H mmol/L (-2.0-2.0) Garrett Test N/a A-a O2 Gradient 5.5 mmHg mmHg (5-10) Hematocrit 38.6 % % (37-47) Hgb O2 Saturation 90.7 % L % (95-100) Carboxyhemoglobin 1.0 %THgb %THgb (0.4-20.1) Methemoglobin 0.3 % L % (0.4-1.5) Total Hemoglobin 12.6 g/dL g/dL (12-16) Sodium 136.0 mmol/L mmol/L (131-143) Potassium 3.6 mmol/L mmol/L (3.5-5.0) Glucose 106.0 mg/dL mg/dL (70-115) Ionized Calcium 1.2 mmol/L mmol/L (1.1-1.4) O2 Delivery Device Room air FiO2 21.0 % % Transportation Manager ID Amh Chloride Carbon Dioxide Anion Gap BUN Creatinine GFR Calculation Calculated Osmolality Calcium Total Bilirubin AST ALT Alkaline Phosphatase Total Protein Albumin Globulin Procalcitonin Coronavirus 229E (PCR) Not detected (NOT DETECT) SARS-CoV-2 (PCR) Detected A (NOT DETECT) 11/19/21 11/19/21 19:50 19:50 WBC RBC Hgb Hct MCV MCH MCHC RDW Plt Count MPV Neut % (Auto) Lymph % (Auto) [place] % (Auto) Eos % (Auto) Baso % (Auto) Neut # (Auto) Lymph # (Auto) [place] # (Auto) Eos # (Auto) Baso # (Auto) Nucleated RBC % (auto) Nucleated RBCs # D-Dimer 0.80 ug/mIFEU H ug/mIFEU (0-0.59) Specimen Type Sample Site ABG pH ABG pCO2 ABG pO2 ABG HCO3 ABG O2 Saturation ABG Base Excess Garrett Test A-a O2 Gradient Hematocrit Hgb O2 Saturation Carboxyhemoglobin Methemoglobin Total Hemoglobin Sodium 134 mmol/L L mmol/L (136-145) Potassium 3.8 mmol/L mmol/L (3.5-5.1) Glucose 87 mg/dL mg/dL (65-115) Ionized Calcium O2 Delivery Device FiO2 Transportation Manager ID Chloride 96 mmol/L L mmol/L (98-107) Carbon Dioxide 25 mmol/L mmol/L (22-29) Anion Gap 16.8 (5-19) BUN 15 mg/dL mg/dL (8-23) Creatinine 0.9 mg/dL mg/dL (0.5-0.9) GFR Calculation Not Reportable Calculated Osmolality 278 mOsm/kg L mOsm/kg (285-295) Calcium 8.3 mg/dL L mg/dL (8.5-10.5) Total Bilirubin 0.3 mg/dL mg/dL (0.15-1.2) AST 25 U/L U/L (0-32) ALT 12 U/L U/L (0-33) Alkaline Phosphatase 117 IU/L H IU/L (35-105) Total Protein 6.9 g/dL g/dL (6.6-8.7) Albumin 3.5 g/dL g/dL (3.5-5.2) Globulin 3.4 g/dL g/dL (1.3-4.6) Procalcitonin 0.07 ng/mL ng/mL (0-0.5) Coronavirus 229E (PCR) SARS-CoV-2 (PCR) Discharge Plan Discharge Patient Disposition: Home Clinical Impression: COVID-19 Condition: Stable Prescriptions: No Action cetirizine 10 mg capsule 10 mg PO DAILY 0RF donepezil 10 mg tablet 10 mg PO DAILY Qty: 90 3RF Rx Instructions: Administer in the morning with breakfast ergocalciferol (vitamin D2) 1,250 mcg (50,000 unit) capsule 1,250 mcg PO DAILY 0RF bumetanide 2 mg tablet 2 mg PO BID 0RF gabapentin 300 mg capsule 300 mg PO BID 0RF diltiazem HCl 90 mg capsule,extended release 12 hr 90 mg PO TID 0RF alprazolam 0.5 mg tablet 0.5 mg PO QID PRN (Reason: anxiety) 0RF carvedilol 6.25 mg tablet 6.25 mg PO BID 0RF Rx Instructions: Take one and half tab BID with meals levothyroxine 25 mcg capsule 25 mcg PO QDAY 0RF calcitonin (salmon) 200 unit/actuation spray,non-aerosol 1 spray intranasal (ALT) DAILY 0RF Eliquis 5 mg tablet 5 mg PO BID Qty: 180 3RF Discharge Orders: Discharge ED (Routine); Ordered 11/19/21 Ordered By: Rosangela Hsu Other Ambulatory Orders: Request for MCA (Routine) Timeframe: 1 Day Facility: [facility] - Location: Outpatient Surgical Services Ordered By: Rosangela Hsu Referrals: Bianka Lowery DO [Primary Care Provider] - Discharge Diet: Advance as tolerated Discharge Activity: Resume usual activity Patient Instructions: Chest Pain (ED) Coding Level of Care Code ED Farm Laborer for Chg Fwd Exam Comprehensive
[2021-11-19 15:27] VITALS: BP 123/64; PULSE 79; RESP 16; TEMP 37.9; O2SAT 93
--- NOTE | 2021-11-19 15:27 | ECG_ITS ---
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 Measurements Intervals [place] Rate: 82 P: [place]: QRS: 92 QRSD: 82 T: 59 QT: 365 QTc: 427 Interpretive Statements ATRIAL FIBRILLATION BORDERLINE RIGHT AXIS DEVIATION [QRS AXIS > 90] LOW QRS VOLTAGE IN PRECORDIAL LEADS [QRS DEFLECTION < 1.0 mV IN CHEST LEADS] ANTEROSEPTAL MYOCARDIAL INFARCTION , OF INDETERMINATE AGE [40+ ms Q WAVE IN V1-V4] Compared to ECG 12/21/2018 13:49:00 Low QRS voltage now present Myocardial infarct finding now present Electronically Signed On 11-20-2021 17:42:49 OPERATIONAL INTELLIGENCE ANALYST by Octavia Lynn M.D. [id number]
[2021-11-19 15:28] VITALS: O2SAT 94
--- NOTE | 2021-11-19 15:28 | XR_ITS ---
WS: [id number] Exam: XR chest 1V portable [id number] Date/Time of Exam: 11/19/2021 3:28 PM Reason For Exam: dyspnea/cough Comparison 12/21/2018. The lungs are clear and fully expanded. Heart size is top limits normal. No pleural effusions. The me diastinum is not widened. 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 Remaining [place] structures are intact. XR/XR chest 1V portable [id number] IMPRESSION: 1. No acute cardiopulmonary finding.
[2021-11-19 15:50] LABS: ABG PCO2 39.1 mmHg (35-45); ABG PH Result 7.49 (7.35-7.45); Alveolar-Arterial Oxygen Gradi 5.5 mmHg (5-10); Arterial Blood Gas Hematocrit 38.6 % (37-47); Base Excess ABG 5.9 mmol/L (-2.0-2.0); Blood Gas Operator Identificat AMH; Blood Gas Sample Site Brachial, right; Blood Gas Sample Type Arterial; HCO3 ABG 29.7 mmol/L (22-26); HGB O2 Sat 90.7 % (95-100); Ionized Calcium Level - ABG 1.2 mmol/L (1.1-1.4); Methemoglobin 0.3 % (0.4-1.5); Oxygen Device ROOM AIR; Oxygen Saturation ABG 91.9; PO2 ABG 58.3 mmHg (80.0-100.0); Potassium Level - ABG 3.6 mmol/L (3.5-5.0); Total Hemoglobin 12.6 g/dL (12-16)
[2021-11-19] MEDS: LORazepam 2 mg/mL INJ 1 mL 1 MG IVP (17:54)
[2021-11-19 19:18] LABS: Adenovirus Not Detected (NOT DETECT); Chlamydia Pneumoniae Not Detected (NOT DETECT); Coronavirus 229E,HKU1,NL63,OC4 Not Detected (NOT DETECT); Human Metapneumovirus Not Detected (NOT DETECT); Human Rhinovirus/Enterovirus Not Detected (NOT DETECT); Influenza A Not Detected (NOT DETECT); Influenza A H1 Not Detected (NOT DETECT); Influenza A H1-2009 Not Detected (NOT DETECT); Influenza A H3 Not Detected (NOT DETECT); Influenza B Not Detected (NOT DETECT); Mycoplasma Pneumoniae Not Detected (NOT DETECT); Parainfluenza Virus Type 1 Not Detected (NOT DETECT); Parainfluenza Virus Type 2 Not Detected (NOT DETECT); Parainfluenza Virus Type 3 Not Detected (NOT DETECT); Parainfluenza Virus Type 4 Not Detected (NOT DETECT); Respiratory Syncytial Virus A Not Detected (NOT DETECT); Respiratory Syncytial Virus B Not Detected (NOT DETECT); SARS-COV-2 Detected (NOT DETECT)
[2021-11-19 19:57] LABS: Basophils # 0.1 10^3/uL (0.0-0.1); Eosinophils # 0.2 10^3/uL (0.0-0.8); Eosinophils % 3.4 %; Hematocrit 37.7 % (37.0-47.0); Hemoglobin 12.8 g/dL (11.5-15.3); Lymphocytes # 1.1 10^3/uL (0.8-4.8); Mean Corpuscular Hemoglobin 32.1 pg (28.0-34.0); Mean Corpuscular Volume 94.5 fl (81-99); Mean Platelet Volume 9.4 fL (7.4-10.4); Monocytes # 1.3 10^3/uL (0.2-0.9); Monocytes % 20.9 %; Neutrophils # 3.43 10^3/uL (1.8-7.7); Nucleated Red Blood Cells % 0 %; Platelet Count 258 10^3/cmm (130-400); Red Blood Count 3.99 10^6/uL (4.1-5.3); Red Cell Distribution Width 13.7 % (12.1-15.1); White Blood Count 6.1 10^3/uL (4.0-10.0)
[2021-11-19 20:19] LABS: Alanine Aminotransferase 12 U/L (0-33); Albumin Level 3.5 g/dL (3.5-5.2); Alkaline Phosphatase 117 IU/L (35-105); Anion Gap 16.8 (5-19); Aspartate Amino Transferase 25 U/L (0-32); Blood Urea Nitrogen 15 mg/dL (8-23); Calcium 8.3 mg/dL (8.5-10.5); Carbon Dioxide 25 mmol/L (22-29); Chloride 96 mmol/L (98-107); Globulin 3.4 g/dL (1.3-4.6); Glucose 87 mg/dL (65-115); Osmolality Calculated 278 mOsm/kg (285-295); Potassium 3.8 mmol/L (3.5-5.1); Sodium 134 mmol/L (136-145); Total Bilirubin 0.3 mg/dL (0.15-1.2); Total Protein 6.9 g/dL (6.6-8.7)
[2021-11-19 20:26] LABS: Procalcitonin 0.07 ng/mL (0-0.5)
[2021-11-19 20:52] VITALS: BP 142/84; PULSE 98; RESP 18; O2SAT 95
[2021-11-19 21:45] VITALS: O2SAT 92; O2SAT 96
[2021-11-19 22:43] VITALS: BP 122/63; PULSE 89; RESP 16; O2SAT 97
== END 2021-11-19 22:44 | disposition home or self-care (01) ==
PROVIDERS: Family Medicine; Emergency Provider Emergency Medicine; PCP Family Medicine
DX: U07.1 COVID-19 (principal); Z79.01 Long term (current) use of anticoagulants; G30.9 Alzheimer's disease, unspecified; F02.80 Dementia in other diseases classified elsewhere, unspecified severity, without behavioral disturbance, psychotic disturbance, mood disturbance, and anxiety; E78.5 Hyperlipidemia, unspecified; I10 Essential (primary) hypertension
CPT/HCPCS: 36600; 71045; 80051; 80053; 82330; 82805; 84145; 85025; 85378; 87040; 87635; 93005; 96374; 99283; J2060

== ENCOUNTER → 2022-01-09 15:04 | Outpatient (BNVA) | payer MEDICARE, SELFPAY | PROVIDERS: PCP Family Medicine; Visit Provider Internal Medicine | DX: I48.91 Unspecified atrial fibrillation (principal); E78.5 Hyperlipidemia, unspecified; I10 Essential (primary) hypertension | CPT/HCPCS: 99213 ==

== ENCOUNTER 2022-01-15 12:01 | Emergency (ER) | payer MEDICARE, SELFPAY ==
[2022-01-15 12:02] VITALS: BP 98/43; PULSE 47; RESP 13; TEMP 36.4; O2SAT 96
--- NOTE | 2022-01-15 12:12 | ED_ITS ---
HPI - General Adult General: Chief complaint: Altered Mental Status Stated complaint: AMS/ JAW PAIN Time Seen by Provider: 01/15/22 12:09 Source: patient Mode of arrival: EMS Limitations: altered mental status History of Present Illness: 81-year-old female presents emergency room complaining of jaw pain. She has a history of pretty significant dementia she is getting anxious this morning because they were going to go to an appointment her son and given her some Xanax she seemed to calm down in bed and then got a little bit more wound up was complaining of pain in the right jaw and ear. Due to patient's dementia she cannot really contribute any history. Son relates not reported any chest pain or shortness of breath of late no vomiting or diarrhea no fever. No upper respiratory symptoms. Onset (ago): minute(s) Location: head and face Severity: mild Relieving factors: none Exacerbating factors: none Associated symptoms: Reports confusion; Deny chest pain, cough, diaphoresis, decreased appetite, dyspnea, fevers/chills, headache(s), malaise, nausea, rash, palpitations, seizures, short of breath, syncope, vomiting or weakness Treatments prior to arrival: none Review of Systems General: Reports: ROS unobtainable due to mental status Const: Denies: malaise or diaphoresis Card: Denies: chest pain, palpitations or syncope Resp: Denies: dyspnea GI: Denies: nausea or vomiting Skin/Breast: Denies: rash Neuro: Reports: confusion; Denies: headache(s) PFS ED PFSH: Medical History Alzheimer's dementia without behavioral disturbance Anticoagulation adequate with anticoagulant therapy Eliquis Atrial fibrillation CKD (chronic kidney disease) Dyslipidemia HTN (hypertension) Lumbar compression fracture Lumbar stenosis with neurogenic claudication Surgical History History of cholecystectomy (~2014) History of hip surgery (~2019) Closed reduction with intramedullary nailing with proximal and distal interlocking to treat left intertrochanter hip fracture History of tonsillectomy Family History Father Stroke Mother Lung cancer Social History Smoking and tobacco status: never smoked Second hand smoke exposure: No Alcohol intake: never Household members: family Housing: House Marital status: / Current occupational status: retired History of recent travel: No Physical Exam Const: COMMON NORMALS: no acute distress and alert GENERAL APPEARANCE: cooperative, comfortable and well kempt NUTRITIONAL APPEARANCE: obese ORIENTATION/CONSCIOUSNESS: Yes awake, Yes oriented to person and Yes oriented to place HENMT: COMMON NORMALS: normocephalic, atraumatic, hearing grossly normal bilaterally, EAC's normal, TM's normal bilaterally and Normal external nose present HEAD & SCALP: normocephalic and atraumatic NOSE: Normal external nose present EXTERNAL AUDITORY CANAL: EAC's normal TYMPANIC MEMBRANE: TM's normal bilaterally MOUTH: Normal oral and palatal mucosa present, lip normal and tongue normal THROAT: posterior oropharynx normal and tonsils normal Eye: COMMON NORMALS: Equal, round and reactive pupils present, EOMs intact bilaterally, conjunctivae normal and no scleral icterus CONJUNCTIVA: Yes conjunctivae normal PUPIL: Yes Equal, round and reactive pupils present Neck/C-Spine: COMMON NORMALS: no meningeal signs, no JVD and Thyroid normal THYROID: Thyroid normal and asymmetrical Lymph: LYMPHATIC: no lymphadenopathy noted Resp: COMMON NORMALS: normal respiratory effort, No retractions, No use of accessory muscles and clear to auscultation bilaterally AUSCULTATION: clear to auscultation bilaterally Cardio: COMMON NORMALS: no JVD, regular rate, regular rhythm and No murmurs present (Cardio) RATE: regular rate RHYTHM: regular rhythm HEART SOUNDS: no murmurs GI: COMMON NORMALS: Soft to palpation and No hepatosplenomegaly present AUSCULTATION: Yes normoactive bowel sounds PALPATION: Yes Soft to palpation, No Tenderness to palpation present (GI), No Guarding due to palpation present (GI) and Yes No hepatosplenomegaly present : COMMON NORMALS: Yes no CVA tenderness BLADDER/KIDNEY EXAM: Yes no CVA tenderness Back/Pelvis: COMMON NORMALS: no CVA tenderness LUMBAR SPINE/LOWER BACK: Yes normal to inspection Extremity: COMMON NORMALS: normal to inspection, capillary refill normal, no clubbing, cyanosis or edema, no calf tenderness and no pedal edema Neuro: SENSORIUM/ORIENTATION: Yes alert, Yes oriented to person and Yes oriented to place MENINGEAL SIGNS: Yes no meningeal signs Psych: APPEARANCE: Yes well kempt Skin: COMMON NORMALS: no rashes or lesions noted GENERAL SKIN EXAM: no rashes or lesions noted Course Vital Signs: Vital signs: Vital Signs Temperature 97.6 F 01/15/22 12:02 Pulse Rate 63 01/15/22 14:49 Respiratory Rate 17 01/15/22 14:49 Blood Pressure 136/58 01/15/22 14:49 Pulse Oximetry 97 01/15/22 14:49 [facility] - General Adult Medical Decision Making Symptoms have resolved. She does not really have any signs of a Zamora's palsy which is one possibility. Her external auditory canal and the ear appear normal. No other symptoms at this time. Reviewed labs and findings the patient we will discharge her home. Recommend follow-up with primary care if symptoms times return or worsen can always return to the emergency room. Medical Records I reviewed the patient's medical records. Lab Data I reviewed the patient's lab results. : 01/15/22 12:15 01/15/22 12:15 Radiology Impressions Chest X-Ray 01/15/22 12:12 IMPRESSION: No acute chest abnormality. Laboratory Results WBC 8.7 10^3/uL (4.0-10.0) 01/15/22 12:15 RBC 3.60 10^6/uL (4.1-5.3) L 01/15/22 12:15 Hgb 11.7 g/dL (11.5-15.3) 01/15/22 12:15 Hct 35.6 % (37.0-47.0) L 01/15/22 12:15 MCV 98.9 fl (81-99) 01/15/22 12:15 MCH 32.5 pg (28.0-34.0) 01/15/22 12:15 MCHC 32.9 g/dL (30.0-36.0) 01/15/22 12:15 RDW 14.5 % (12.1-15.1) 01/15/22 12:15 Plt Count 305 10^3/cmm (130-400) 01/15/22 12:15 MPV 9.3 fL (7.4-10.4) 01/15/22 12:15 Neut % (Auto) 55.1 % 01/15/22 12:15 Lymph % (Auto) 29.7 % 01/15/22 12:15 [place] % (Auto) 9.7 % 01/15/22 12:15 Eos % (Auto) 3.6 % 01/15/22 12:15 Baso % (Auto) 1.2 % 01/15/22 12:15 Neut # (Auto) 4.77 10^3/uL (1.8-7.7) 01/15/22 12:15 Lymph # (Auto) 2.6 10^3/uL (0.8-4.8) 01/15/22 12:15 [place] # (Auto) 0.8 10^3/uL (0.2-0.9) 01/15/22 12:15 Eos # (Auto) 0.3 10^3/uL (0.0-0.8) 01/15/22 12:15 Baso # (Auto) 0.1 10^3/uL (0.0-0.1) 01/15/22 12:15 Nucleated RBC % (auto) 0 % 01/15/22 12:15 Nucleated RBCs # 0.0 /100WBC 01/15/22 12:15 Sodium 137 mmol/L (136-145) 01/15/22 12:15 Potassium 4.0 mmol/L (3.5-5.1) 01/15/22 12:15 Chloride 102 mmol/L (98-107) 01/15/22 12:15 Carbon Dioxide 27 mmol/L (22-29) 01/15/22 12:15 Anion Gap 12.0 (5-19) 01/15/22 12:15 BUN 14 mg/dL (8-23) 01/15/22 12:15 Creatinine 1.0 mg/dL (0.5-0.9) H 01/15/22 12:15 GFR Calculation Not Reportable 01/15/22 12:15 Glucose 115 mg/dL (65-115) 01/15/22 12:15 Calculated Osmolality 285 mOsm/kg (285-295) 01/15/22 12:15 Calcium 9.1 mg/dL (8.5-10.5) 01/15/22 12:15 Magnesium 2.0 mg/dL (1.7-2.3) 01/15/22 12:15 Total Bilirubin 0.5 mg/dL (0.15-1.2) 01/15/22 12:15 AST 15 U/L (0-32) 01/15/22 12:15 ALT 8 U/L (0-33) 01/15/22 12:15 Alkaline Phosphatase 101 IU/L (35-105) 01/15/22 12:15 Creatine Kinase 22 U/L (26-192) L 01/15/22 12:15 Troponin T Baseline 16 ng/L (0-10) H 01/15/22 12:15 Total Protein 6.4 g/dL (6.6-8.7) L 01/15/22 12:15 Albumin 3.5 g/dL (3.5-5.2) 01/15/22 12:15 Globulin 2.9 g/dL (1.3-4.6) 01/15/22 12:15 Urine Color Yellow (Yellow) 01/15/22 Unknown Urine Appearance Hazy (CLEAR) A 01/15/22 Unknown Urine pH 5 (5-7) 01/15/22 Unknown Ur Specific [place] 1.020 (1.005-1.030) 01/15/22 Unknown Urine Protein Neg (Negative) 01/15/22 Unknown Urine Glucose (UA) Norm (Normal) 01/15/22 Unknown Urine Ketones Negative (Negative) 01/15/22 Unknown Urine Blood Neg (Negative) 01/15/22 Unknown Urine Nitrate Negative (Negative) 01/15/22 Unknown Urine Bilirubin Neg (Negative) 01/15/22 Unknown Urine Urobilinogen Norm mg/dL (Negative) 01/15/22 Unknown Ur Leukocyte Esterase 2+ (Negative) H 01/15/22 Unknown Urine RBC 0-4 /hpf (0-2) H 01/15/22 Unknown Urine WBC 25-40 /hpf (0-5) H 01/15/22 Unknown Ur Squamous Epith Cells 5-10 /hpf (0-5) H 01/15/22 Unknown Amorphous Sediment Not Reportable 01/15/22 Unknown Urine Bacteria 1+ /hpf (NONE) H 01/15/22 Unknown Hyaline Casts 5-10 /lpf H 01/15/22 Unknown Discharge Plan Discharge Patient Disposition: Home Clinical Impression: Otalgia, Dementia, Anxiety Condition: Stable Prescriptions: No Action cetirizine 10 mg capsule 10 mg PO DAILY 0RF donepezil 10 mg tablet 10 mg PO DAILY Qty: 90 3RF Rx Instructions: Administer in the morning with breakfast ergocalciferol (vitamin D2) 1,250 mcg (50,000 unit) capsule 1,250 mcg PO DAILY 0RF bumetanide 2 mg tablet 2 mg PO BID 0RF gabapentin 300 mg capsule 300 mg PO BID 0RF diltiazem HCl 90 mg capsule,extended release 12 hr 90 mg PO TID 0RF alprazolam 0.5 mg tablet 0.5 mg PO QID PRN (Reason: anxiety) 0RF carvedilol 6.25 mg tablet 6.25 mg PO BID 0RF Rx Instructions: Take one and half tab BID with meals levothyroxine 25 mcg capsule 25 mcg PO QDAY 0RF calcitonin (salmon) 200 unit/actuation spray,non-aerosol 1 spray intranasal (ALT) DAILY 0RF mirtazapine 7.5 mg tablet 7.5 mg PO DAILY 0RF Eliquis 5 mg tablet 5 mg PO BID Qty: 180 3RF bupropion HCl 150 mg tablet extended release 24 hr 150 mg PO DAILY 0RF ProAir HFA 90 mcg/actuation HFA aerosol inhaler 2 puff INHALATION QID 0RF ondansetron 4 mg tablet,disintegrating 4 mg PO QID PRN (Reason: Nausea) 0RF Discharge Orders: Discharge ED (Routine); Ordered 01/15/22 Ordered By: Arash Dodd Referrals: Bianka Lowery DO [Primary Care Provider] - Patient Instructions: Opioid Safety Coding Level of Care Code ED Competitive Intelligence Analyst for Chg Fwd Exam Comprehensive
--- NOTE | 2022-01-15 12:12 | XR_ITS ---
WS: [id number] XR chest 1V portable [id number] REASON FOR EXAM: dyspnea/cough FINDINGS: The chest is unchanged compared to 11/19/2021. Mild tortuosity the thoracic aorta without aneurysmal dilatation. Heart size at the upper limits of n ormal. No acute pulmonary parenchymal or pleural abnormality. Degenerative and osteoporotic changes in the thoracic spine with previous vertebral plasties. XR/XR chest 1V portable [id number] IMPRESSION: No acute chest abnormality.
[2022-01-15 12:14] VITALS: BP 95/48; PULSE 51; RESP 17; O2SAT 97
[2022-01-15 12:26] LABS: Basophils # 0.1 10^3/uL (0.0-0.1); Basophils % 1.2 %; Eosinophils # 0.3 10^3/uL (0.0-0.8); Eosinophils % 3.6 %; Hematocrit 35.6 % (37.0-47.0); Hemoglobin 11.7 g/dL (11.5-15.3); Lymphocytes # 2.6 10^3/uL (0.8-4.8); Lymphocytes % 29.7 %; Mean Corpuscular HGB Conc 32.9 g/dL (30.0-36.0); Mean Corpuscular Hemoglobin 32.5 pg (28.0-34.0); Mean Corpuscular Volume 98.9 fl (81-99); Mean Platelet Volume 9.3 fL (7.4-10.4); Monocytes # 0.8 10^3/uL (0.2-0.9); Monocytes % 9.7 %; Neutrophils # 4.77 10^3/uL (1.8-7.7); Neutrophils % 55.1 %; Nucleated Red Blood Cells % 0 %; Platelet Count 305 10^3/cmm (130-400); Red Cell Distribution Width 14.5 % (12.1-15.1); White Blood Count 8.7 10^3/uL (4.0-10.0)
--- NOTE | 2022-01-15 12:32 | ECG_ITS ---
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 Measurements Intervals [place] Rate: 45 P: [place]: QRS: 38 QRSD: 83 T: 35 QT: 481 QTc: 418 Interpretive Statements ATRIAL FIBRILLATION WITH SLOW VENTRICULAR RESPONSE LOW QRS VOLTAGE IN PRECORDIAL LEADS [QRS DEFLECTION < 1.0 mV IN CHEST LEADS] POSSIBLE ANTERIOR MYOCARDIAL INFARCTION , OF INDETERMINATE AGE [30 ms Q WAVE IN V3/V4, OR R < 0.2 mV IN V4] Compared to ECG 11/19/2021 16:01:09 No significant changes Electronically Signed On 01-15-2022 18:42:46 CDT by Fredy Davila M.D. [email or web address]
[2022-01-15 12:44] VITALS: BP 110/43; PULSE 54; RESP 19; O2SAT 98
[2022-01-15 12:53] LABS: Alanine Aminotransferase 8 U/L (0-33); Albumin Level 3.5 g/dL (3.5-5.2); Alkaline Phosphatase 101 IU/L (35-105); Aspartate Amino Transferase 15 U/L (0-32); Blood Urea Nitrogen 14 mg/dL (8-23); Calcium 9.1 mg/dL (8.5-10.5); Carbon Dioxide 27 mmol/L (22-29); Chloride 102 mmol/L (98-107); Creatine Phosphokinase 22 U/L (26-192); Globulin 2.9 g/dL (1.3-4.6); Glucose 115 mg/dL (65-115); Osmolality Calculated 285 mOsm/kg (285-295); Sodium 137 mmol/L (136-145); Total Bilirubin 0.5 mg/dL (0.15-1.2); Total Protein 6.4 g/dL (6.6-8.7)
[2022-01-15 13:12] LABS: Troponin(5th) Baseline 16 ng/L (0-10)
[2022-01-15 13:46] LABS: Urine Appearance Hazy (CLEAR); Urine Color Yellow (Yellow); pH Urine 5 (5-7)
[2022-01-15 13:47] LABS: Bilirubin Urine Neg (Negative); Blood Urine Neg (Negative); Glucose Urine UA Norm (Normal); Ketones Urine Negative (Negative); Leukocyte Esterase Urine 2+ (Negative); Nitrate Urine Negative (Negative); Protein Urine Neg (Negative); Urobilinogen Urine Norm (Negative)
[2022-01-15 13:49] LABS: Add Urine Microscopic? YES
[2022-01-15 13:50] LABS: Bacteria Urine 1+ /hpf; RBC Urine 0-4 /hpf (0-2); WBC Urine 25-40 /hpf (0-5)
[2022-01-15 13:51] LABS: Add Urine Culture? Yes; Charge for UA Resulting for Rev
[2022-01-15 14:49] VITALS: BP 136/58; PULSE 63; RESP 17; O2SAT 97
== END 2022-01-15 14:54 | disposition home or self-care (01) ==
PROVIDERS: Emergency Provider Family Medicine; PCP Family Medicine
DX: H92.09 Otalgia, unspecified ear (principal); F41.9 Anxiety disorder, unspecified; Z79.01 Long term (current) use of anticoagulants; G30.9 Alzheimer's disease, unspecified; F02.80 Dementia in other diseases classified elsewhere, unspecified severity, without behavioral disturbance, psychotic disturbance, mood disturbance, and anxiety; E78.5 Hyperlipidemia, unspecified; I10 Essential (primary) hypertension
CPT/HCPCS: 51702; 71045; 80053; 81001; 81003; 82550; 83735; 84484; 85025; 87086; 93005; 99283

== ENCOUNTER 2022-07-10 13:34 | Emergency (ER) | payer MEDICARE, SELFPAY ==
[2022-07-10 13:35] VITALS: BP 111/79; PULSE 66; RESP 21; TEMP 36.4; O2SAT 94; BMI 23.8
--- NOTE | 2022-07-10 13:40 | ED_ITS ---
HPI - Weakness General: Chief complaint: Weakness Stated complaint: weakness Time Seen by Provider: 07/10/22 13:37 Source: patient Mode of arrival: ambulatory Limitations: no limitations History of Present Illness: 81 yo female presents form home via EMS. Pt has underlying dmenetia. she is not able to contribute anything to history. she denies any complaints and states she wants to go home. SHe answers all questions in the negative. MD Complaint: generalized weakness Onset (ago): unknown Location: generalized Relieving factors: none Exacerbating factors: none Associated symptoms: Reports confusion; Denies chest pain, decreased appetite, dysuria or short of breath Review of Systems General: Reports: ROS unobtainable due to mental status (Minimal review of systems obtained from patient due to mental status) Card: Denies: chest pain Resp: Reports: non-productive cough GI: Reports: abdominal pain : Denies: dysuria Neuro: Reports: confusion PFS ED 2 PFSH: Medical History Alzheimer's dementia without behavioral disturbance Anticoagulation adequate with anticoagulant therapy Eliquis Atrial fibrillation CKD (chronic kidney disease) Dyslipidemia HTN (hypertension) Lumbar compression fracture Lumbar stenosis with neurogenic claudication Surgical History History of cholecystectomy (~2013) History of hip surgery (~2019) Closed reduction with intramedullary nailing with proximal and distal interlocking to treat left intertrochanter hip fracture History of tonsillectomy Family History Father Stroke Mother Lung cancer Social History Smoking and tobacco status: never smoked Second hand smoke exposure: No Alcohol intake: never Household members: family Housing: House Marital status: / Current occupational status: retired History of recent travel: No Physical Exam Const: COMMON NORMALS: no acute distress GENERAL APPEARANCE: cooperative and comfortable HENMT: COMMON NORMALS: normocephalic, atraumatic and hearing grossly normal bilaterally HEAD & SCALP: normocephalic and atraumatic Eye: COMMON NORMALS: Equal, round and reactive pupils present, EOMs intact bilaterally and conjunctivae normal CONJUNCTIVA: Yes conjunctivae normal PUPIL: Yes Equal, round and reactive pupils present Neck/C-Spine: COMMON NORMALS: no lymphadenopathy and supple Resp: COMMON NORMALS: normal respiratory effort, No retractions, No use of accessory muscles and clear to auscultation bilaterally AUSCULTATION: clear to auscultation bilaterally Cardio: COMMON NORMALS: regular rate, regular rhythm and No murmurs present (Cardio) RATE: regular rate RHYTHM: regular rhythm GI: COMMON NORMALS: Soft to palpation and No hepatosplenomegaly present AUSCULTATION: Yes normoactive bowel sounds PALPATION: Yes Soft to palpation, No Tenderness to palpation present (GI), No Guarding due to palpation present (GI) and Yes No hepatosplenomegaly present Extremity: COMMON NORMALS: normal to inspection, capillary refill normal, no clubbing, cyanosis or edema, no calf tenderness and no pedal edema Skin: COMMON NORMALS: no rashes or lesions noted GENERAL SKIN EXAM: no rashes or lesions noted Course Vital Signs: Vital signs: Vital Signs Temperature 97.5 F L 07/10/22 13:35 Pulse Rate 64 07/10/22 17:48 Respiratory Rate 21 H 07/10/22 17:48 Blood Pressure 142/63 07/10/22 17:48 Pulse Oximetry 96 07/10/22 17:48 Oxygen Delivery Me thod 07/10/22 16:00 MDM - Weakness Medical Decision Making Dementia labs unremarkable. Mild hyponatremia which is chronic discharge patient home with family encourage consideration of placement for group home level of care Medical Records I reviewed the patient's medical records. Lab Data I reviewed the patient's lab results. : 07/10/22 14:05 07/10/22 14:05 Radiology Impressions Chest X-Ray 07/10/22 13:42 Impression: Atherosclerosis. Laboratory Results WBC 6.1 10^3/uL (4.0-10.0) 07/10/22 14:05 RBC 4.21 10^6/uL (4.1-5.3) 07/10/22 14:05 Hgb 13.4 g/dL (11.5-15.3) 07/10/22 14:05 Hct 40.9 % (37.0-47.0) 07/10/22 14:05 MCV 97.1 fl (81-99) 07/10/22 14:05 MCH 31.8 pg (28.0-34.0) 07/10/22 14:05 MCHC 32.8 g/dL (30.0-36.0) 07/10/22 14:05 RDW 15.4 % (12.1-15.1) H 07/10/22 14:05 Plt Count 259 10^3/cmm (130-400) 07/10/22 14:05 MPV 9.2 fL (7.4-10.4) 07/10/22 14:05 Neut % (Auto) 77.7 % 07/10/22 14:05 Lymph % (Auto) 13.5 % 07/10/22 14:05 [place] % (Auto) 6.8 % 07/10/22 14:05 Eos % (Auto) 0.8 % 07/10/22 14:05 Baso % (Auto) 0.7 % 07/10/22 14:05 Neut # (Auto) 4.72 10^3/uL (1.8-7.7) 07/10/22 14:05 Lymph # (Auto) 0.8 10^3/uL (0.8-4.8) 07/10/22 14:05 [place] # (Auto) 0.4 10^3/uL (0.2-0.9) 07/10/22 14:05 Eos # (Auto) 0.1 10^3/uL (0.0-0.8) 07/10/22 14:05 Baso # (Auto) 0.0 10^3/uL (0.0-0.1) 07/10/22 14:05 Nucleated RBC % (auto) 0 % 07/10/22 14:05 Nucleated RBCs # 0.0 /100WBC 07/10/22 14:05 Sodium 127 mmol/L (136-145) L 07/10/22 14:05 Potassium 4.1 mmol/L (3.5-5.1) 07/10/22 14:05 Chloride 94 mmol/L (98-107) L 07/10/22 14:05 Carbon Dioxide 24 mmol/L (22-29) 07/10/22 14:05 Anion Gap 13.1 (5-19) 07/10/22 14:05 BUN 12 mg/dL (8-23) 07/10/22 14:05 Creatinine 0.7 mg/dL (0.5-0.9) 07/10/22 14:05 GFR Calculation Not Reportable 07/10/22 14:05 Glucose 93 mg/dL (65-115) 07/10/22 14:05 Calculated Osmolality 263 mOsm/kg (285-295) L 07/10/22 14:05 Calcium 8.6 mg/dL (8.5-10.5) 07/10/22 14:05 Total Bilirubin 0.6 mg/dL (0.15-1.2) 07/10/22 14:05 AST 19 U/L (0-32) 07/10/22 14:05 ALT 9 U/L (0-33) 07/10/22 14:05 Alkaline Phosphatase 159 U/L (35-105) H 07/10/22 14:05 Total Protein 6.7 g/dL (6.6-8.7) 07/10/22 14:05 Albumin 3.4 g/dL (3.5-5.2) L 07/10/22 14:05 Globulin 3.3 g/dL (1.3-4.6) 07/10/22 14:05 Urine Color Yellow (Yellow) 07/10/22 16:31 Urine Appearance Clear (CLEAR) 07/10/22 16:31 Urine pH 6 (5-7) 07/10/22 16:31 Ur Specific [place] 1.020 (1.005-1.030) 07/10/22 16:31 Urine Protein Neg (Negative) 07/10/22 16:31 Urine Glucose (UA) Norm (Normal) 07/10/22 16:31 Urine Ketones Negative (Negative) 07/10/22 16:31 Urine Blood 2+ (Negative) H 07/10/22 16:31 Urine Nitrate Negative (Negative) 07/10/22 16:31 Urine Bilirubin Neg (Negative) 07/10/22 16:31 Urine Urobilinogen Norm mg/dL (Negative) 07/10/22 16:31 Ur Leukocyte Esterase Negative (Negative) 07/10/22 16:31 Urine RBC 0-4 /hpf (0-2) H 07/10/22 16:31 Urine WBC 0-4 /hpf (0-5) H 07/10/22 16:31 Ur Squamous Epith Cells 0-4 /hpf (0-5) H 07/10/22 16:31 Amorphous Sediment Not Reportable 07/10/22 16:31 Urine Bacteria None /hpf (NONE) 07/10/22 16:31 Discharge Plan Discharge Patient Disposition: Home Clinical Impression: Alzheimer's dementia without behavioral disturbance Condition: Stable Prescriptions: No Action cetirizine 10 mg capsule 10 mg PO DAILY donepezil 10 mg tablet 10 mg PO DAILY Qty: 90 3RF Rx Instructions: Administer in the morning with breakfast gabapentin 300 mg capsule 300 mg PO BID diltiazem HCl 90 mg capsule,extended release 12 hr 90 mg PO TID alprazolam 0.5 mg tablet 0.5 mg PO QID PRN (Reason: anxiety) carvedilol 6.25 mg tablet 9.375 mg PO BID Rx Instructions: ONE AND A HALF TABS TO EQUAL 9.375MG BID levothyroxine 25 mcg capsule 25 mcg PO DAILY calcitonin (salmon) 200 unit/actuation spray,non-aerosol 1 spray intranasal (ALT) DAILY Eliquis 5 mg tablet 5 mg PO BID Qty: 180 3RF bupropion HCl 150 mg tablet extended release 24 hr 150 mg PO DAILY albuterol sulfate [ProAir HFA] 90 mcg/actuation HFA aerosol inhaler 2 puff INHALATION QID Discharge Orders: Discharge ED (Routine); Ordered 07/10/22 Ordered By: Arash Dodd Referrals: Bianka Lowery DO [Primary Care Provider] - Discharge Diet: Usual diet Discharge Activity: Resume usual activity Patient Instructions: Opioid Safety Activity Restrictions/Additional Instructions: Continue routine medications. Follow-up with your primary care doctor. Coding Level of Care Code ED Ultimate Hoops Trainer for Arsen King
--- NOTE | 2022-07-10 13:42 | XR_ITS ---
WS: [id number] Portable AP upright chest, 07/10/2022 Clinical Data: dyspnea/cough Comparison: Portable chest, 01/15/2022. Findings: No nodules, masses or effusions are seen. The heart is normal. The pulmonary vascularity is not increased. No pneumonia or pneumothorax is seen. The aortic arch and descending thoracic aorta s how mild tortuosity and calcification. Vertebroplasty cement is present in multiple thoracic vertebra l bodies. Monitor leads are on the chest wall. XR/XR chest 1V portable [id number] Impression: Atherosclerosis.
--- NOTE | 2022-07-10 14:00 | PC.NURSE ---
PT PLACED ON CONTINUOUS NIBP, SPO2, AND CM
[2022-07-10 14:07] VITALS: BP 111/79; PULSE 62; RESP 14; O2SAT 94
[2022-07-10 14:13] LABS: Basophils % 0.7 %; Eosinophils # 0.1 10^3/uL (0.0-0.8); Eosinophils % 0.8 %; Hematocrit 40.9 % (37.0-47.0); Hemoglobin 13.4 g/dL (11.5-15.3); Lymphocytes # 0.8 10^3/uL (0.8-4.8); Lymphocytes % 13.5 %; Mean Corpuscular HGB Conc 32.8 g/dL (30.0-36.0); Mean Corpuscular Hemoglobin 31.8 pg (28.0-34.0); Mean Corpuscular Volume 97.1 fl (81-99); Mean Platelet Volume 9.2 fL (7.4-10.4); Monocytes # 0.4 10^3/uL (0.2-0.9); Monocytes % 6.8 %; Neutrophils # 4.72 10^3/uL (1.8-7.7); Neutrophils % 77.7 %; Nucleated Red Blood Cells % 0 %; Platelet Count 259 10^3/cmm (130-400); Red Blood Count 4.21 10^6/uL (4.1-5.3); Red Cell Distribution Width 15.4 % (12.1-15.1); White Blood Count 6.1 10^3/uL (4.0-10.0)
[2022-07-10 14:30] LABS: Alanine Aminotransferase 9 U/L (0-33); Albumin Level 3.4 g/dL (3.5-5.2); Alkaline Phosphatase 159 U/L (35-105); Aspartate Amino Transferase 19 U/L (0-32); Blood Urea Nitrogen 12 mg/dL (8-23); Calcium 8.6 mg/dL (8.5-10.5); Carbon Dioxide 24 mmol/L (22-29); Chloride 94 mmol/L (98-107); Creatinine Clr Calc Pharmacy 48.2914; Globulin 3.3 g/dL (1.3-4.6); Glucose 93 mg/dL (65-115); Osmolality Calculated 263 mOsm/kg (285-295); Sodium 127 mmol/L (136-145); Total Bilirubin 0.6 mg/dL (0.15-1.2); Total Protein 6.7 g/dL (6.6-8.7)
[2022-07-10 14:33] LABS: Anion Gap 13.1 (5-19); Potassium 4.1 mmol/L (3.5-5.1)
[2022-07-10 16:00] VITALS: BP 136/56; PULSE 64; RESP 19; O2SAT 92
[2022-07-10 16:59] LABS: Urine Appearance Clear (CLEAR); Urine Color Yellow (Yellow); pH Urine 6 (5-7)
[2022-07-10 17:00] LABS: Add Urine Culture? No; Add Urine Microscopic? YES; Bilirubin Urine Neg (Negative); Blood Urine 2+ (Negative); Glucose Urine UA Norm (Normal); Ketones Urine Negative (Negative); Leukocyte Esterase Urine Negative (Negative); Nitrate Urine Negative (Negative); Protein Urine Neg (Negative); RBC Urine 0-4 /hpf (0-2); Squamous Epithelial Cell Urine 0-4 /hpf (0-5); Urobilinogen Urine Norm (Negative); WBC Urine 0-4 /hpf (0-5)
[2022-07-10 17:48] VITALS: BP 142/63; PULSE 64; RESP 21; O2SAT 96
== END 2022-07-10 17:45 | disposition home or self-care (01) ==
PROVIDERS: Emergency Provider Family Medicine; PCP Family Medicine
DX: G30.9 Alzheimer's disease, unspecified (principal); F02.80 Dementia in other diseases classified elsewhere, unspecified severity, without behavioral disturbance, psychotic disturbance, mood disturbance, and anxiety; Z79.01 Long term (current) use of anticoagulants; E78.5 Hyperlipidemia, unspecified; I10 Essential (primary) hypertension
CPT/HCPCS: 71045; 80053; 81001; 85025; 99285

== ENCOUNTER 2023-01-21 22:32 | Inpatient (IN) | payer MEDICARE, MEDICAID, SELFPAY ==
[2023-01-21] VITALS (18 sets, daily range): BP systolic 136–149; BP diastolic 61–113; PULSE 65–83; RESP 16–25; TEMP 36.4; O2SAT 78–99; BMI 16.5
--- NOTE | 2023-01-21 22:37 | CTR_ITS ---
PROCEDURE INFORMATION: Exam: CT Head Without Contrast Exam date and time: 01/21/2023 11:03 PM Age: 82 years old Clinical indication: Altered mental status/memory loss; Confusion or disorientation; Patient HX: Per family, patient becoming more withdrawn and confused with loss of appetite. History of alzheimer's. ; Additional info: AMS TECHNIQUE: Imaging protocol: Computed tomography of the head without contrast. Radiation optimization: All CT scans at this facility use at least one of these dose optimization techniques: automated exposure control; mA and/or kV adjustment per patient size (includes targeted exams where dose is matched to clinical indication); or iterative reconstruction. REPORTING DATA: Count of CT and Cardiac NM exams in prior 12 months: This patient has received 0 known CTs and 0 known cardiac nuclear medicine studies in the 12 months prior to the current study. COMPARISON: No relevant prior studies available. RADIATION DOSE METRICS: Total DLP (mGy-cm): 598.88 FINDINGS: Brain: No focal hemorrhage or midline shift is identified. The ventricles and parenchyma show moderate to severe atrophy and chronic bicerebral white matter ischemic change. There is ill-defined right parietotemporal hypodensity. Cerebral ventricles: No ventriculomegaly or evidence of hydrocephalus. Prominent cavum vergae. Paranasal sinuses: No evidence of acute sinusitis. Mastoid air cells: Visualized mastoid air cells are well aerated. Bones/joints: No displaced skull fracture is noted. Soft tissues: Unremarkable. Vasculature: Diffuse vascular calcifications are present. CT/CT head wo con* [id number] IMPRESSION: 1. No focal hemorrhage or midline shift. 2. Moderately severe age-related change. 3. Prominent area of right parietotemporal hypodensity, which may be due to subacute or chronic infarction. Based on the CT appearance and conspicuity, this is probably old. Advise correlation. There are no priors for comparison. 4. Very severe atherosclerotic disease.
--- NOTE | 2023-01-21 22:37 | XRR_ITS ---
PROCEDURE INFORMATION: Exam: XR Chest Exam date and time: 01/21/2023 11:09 PM Age: 82 years old Clinical indication: Condition or disease; Other: AMS TECHNIQUE: Imaging protocol: Radiologic exam of the chest. Views: 1 view. COMPARISON: CR XR chest 1V portable [id number] 01/15/2022 11:21 AM FINDINGS: Tubes, catheters and devices: Multifocal thoracolumbar kyphoplasties. Lungs: Mild COPD. Mild left lung base atelectasis or scarring. Pleural spaces: Unremarkable. No pleural effusion. No pneumothorax. Heart/Mediastinum: Heart is mildly enlarged. Vasculature: Advanced diffuse vascular calcification noted. Bones/joints: Diffuse osteopenia. XR/XR chest 1V portable [id number] IMPRESSION: No acute finding.
--- NOTE | 2023-01-21 22:37 | CTR_ITS ---
PROCEDURE INFORMATION: Exam: CTA Head With Contrast, Arteriography Exam date and time: 01/21/2023 11:56 PM Age: 82 years old Clinical indication: Cognitive deficit and weakness; Altered mental status; Patient HX: Per family, patient becoming more withdrawn and confused with loss of appetite. History of alzheimer's. ; Additional info: AMS TECHNIQUE: Imaging protocol: Computed tomographic angiography of the head with contrast. Exam focused on the arteries. 3D rendering (Not supervised by radiologist): MIP and/or 3D reconstructed images were created by the technologist. Radiation optimization: All CT scans at this facility use at least one of these dose optimization techniques: automated exposure control; mA and/or kV adjustment per patient size (includes targeted exams where dose is matched to clinical indication); or iterative reconstruction. Contrast material: OMNI 350; Contrast volume: 100 ml; Contrast route: INTRAVENOUS (IV); REPORTING DATA: Count of CT and Cardiac NM exams in prior 12 months: This patient has received [address] and 0 known cardiac nuclear medicine studies in the 12 months prior to the current study. COMPARISON: CT head wo con* [id number] 01/21/2023 11:03 PM RADIATION DOSE METRICS: Total DLP (mGy-cm): 335.67 FINDINGS: ANTERIOR CIRCULATION: Right internal carotid artery: Severe cavernous ICA atherosclerotic disease. No aneurysm. Right middle cerebral artery: No occlusion or significant stenosis. No aneurysm. Moderate peripheral territory truncated flow with extensive intracranial atherosclerotic disease. Right anterior cerebral artery: No occlusion or significant stenosis. No aneurysm. Left internal carotid artery: Severe cavernous ICA atherosclerotic disease. No aneurysm. Left middle cerebral artery: No occlusion or significant stenosis. No aneurysm. Moderate peripheral territory truncated flow with extensive intracranial atherosclerotic disease. Left anterior cerebral artery: No occlusion or significant stenosis. No aneurysm. POSTERIOR CIRCULATION: Right vertebral artery: No occlusion or significant stenosis. No aneurysm. Left vertebral artery: No occlusion or significant stenosis. No aneurysm. Basilar artery: No occlusion or significant stenosis. No aneurysm. Right posterior cerebral artery: No occlusion or significant stenosis. No aneurysm. Left posterior cerebral artery: 60% origin stenosis. Brain: No focal hemorrhage or midline shift is identified. The ventricles and parenchyma show moderate to severe atrophy and chronic bicerebral white matter ischemic change. There is ill-defined right parietotemporal hypodensity. Cerebral ventricles: No evidence of ventriculomegaly or hydrocephalus. The ventricles seem age-appropriate. Paranasal sinuses: Mild right maxillary sinus disease. Bones/joints: Unremarkable. No acute fracture. Soft tissues: Unremarkable. PROCEDURE INFORMATION: Exam: CTA Neck With Contrast Exam date and time: 01/21/2023 11:56 PM Age: 82 years old Clinical indication: Cognitive deficit and weakness; Altered mental status; Patient HX: Per family, patient becoming more withdrawn and confused with loss of appetite. History of alzheimer's. ; Additional info: AMS TECHNIQUE: Imaging protocol: Computed tomographic angiography of the neck with contrast. 3D rendering (Not supervised by radiologist): MIP and/or 3D reconstructed images were created by the technologist. Radiation optimization: All CT scans at this facility use at least one of these dose optimization techniques: automated exposure control; mA and/or kV adjustment per patient size (includes targeted exams where dose is matched to clinical indication); or iterative reconstruction. Contrast material: OMNI 350; Contrast volume: 100 ml; Contrast route: INTRAVENOUS (IV); REPORTING DATA: Count of CT and Cardiac NM exams in prior 12 months: This patient has received [address] and 0 known cardiac nuclear medicine studies in the 12 months prior to the current study. COMPARISON: CT head wo con* [id number] 01/21/2023 11:03 PM RADIATION DOSE METRICS: Total DLP (mGy-cm): 335.67 FINDINGS: Right common carotid artery: No stenosis. No dissection or occlusion. Right internal carotid artery: 60% proximal right ICA stenosis. Right external carotid artery: No occlusion or high-grade stenosis identififed. Left common carotid artery: No stenosis. No dissection or occlusion. Left internal carotid artery: 80% left proximal ICA stenosis. Left external carotid artery: No occlusion or high-grade stenosis identififed. Right vertebral artery: There is about a 60% stenosis of the right vertebral artery origin. No dissection or occlusion. Left vertebral artery: No stenosis. No dissection or occlusion. Dominant vessel. Soft tissues: No significant soft tissue swelling or other acute finding noted. Bones/joints: No acute fracture. Other findings: [id number] bilateral carotid bulb calcified plaque. CT/CT angio headneck* [id number] IMPRESSION: 1. Moderate intracranial atherosclerotic disease as detailed above. No acute occlusion. 2. See same-day head CT. IMPRESSION: 1. No acute occlusion identified. 2. Severe 80% left proximal ICA stenosis. 3. Moderate 60% right proximal ICA stenosis. 4. 60% right vertebral artery origin stenosis. 5. Dominant left vertebral artery. REFERENCES: NASCET CRITERIA. The degree of stenosis in the cervical segment of the internal carotid artery is based on NASCET criteria. Normal is no stenosis. Mild is less than 50% stenosis. Moderate is 50-69% stenosis. Severe is 70% to 99% stenosis. Total occlusion is no detectable patent lumen.
[2023-01-21 22:57] LABS: Basophils # 0.1 10^3/uL (0.0-0.1); Basophils % 0.4 %; Eosinophils % 0.3 %; Hematocrit 41.3 % (37.0-47.0); Hemoglobin 13.3 g/dL (11.5-15.3); Lymphocytes # 2.3 10^3/uL (0.8-4.8); Lymphocytes % 17.8 %; Mean Corpuscular HGB Conc 32.2 g/dL (30.0-36.0); Mean Corpuscular Hemoglobin 32.3 pg (28.0-34.0); Mean Corpuscular Volume 100.2 fl (81-99); Mean Platelet Volume 9.6 fL (7.4-10.4); Monocytes % 7.8 %; Neutrophils # 9.23 10^3/uL (1.8-7.7); Neutrophils % 73.1 %; Nucleated Red Blood Cells % 0 %; Platelet Count 244 10^3/cmm (130-400); Red Blood Count 4.12 10^6/uL (4.1-5.3); Red Cell Distribution Width 13.9 % (12.1-15.1); White Blood Count 12.6 10^3/uL (4.0-10.0)
--- NOTE | 2023-01-21 23:06 | W.ED.AMS ---
HPI - Altered Mental Status General: Chief Complaint: Altered Mental Status Stated Complaint: AMS Time Seen by Provider: 01/21/23 22:36 Source: patient and EMS Mode of arrival: EMS Limitations: no limitations History of Present Illness: 82-year-old female has a history of severe dementia patient lives at home and is bedbound states over the last week she has had decreased intake and increasing confusion states tonight that her confusion seemed to get worse at 8 here she is able to tell me her name she does follow commands with me answers questions she has no slurred speech she able to move both her arms she seems to be at her baseline currently no fever no vomiting not able to get much history from her though due to her dementia Review of Systems General: Reports: ROS unobtainable due to mental status PFSH ED PFSH: Medical History Alzheimer's dementia without behavioral disturbance Anticoagulation adequate with anticoagulant therapy Eliquis Atrial fibrillation CKD (chronic kidney disease) Dyslipidemia HTN (hypertension) Lumbar compression fracture Lumbar stenosis with neurogenic claudication Surgical History History of cholecystectomy (~2014) History of hip surgery (~2019) Closed reduction with intramedullary nailing with proximal and distal interlocking to treat left intertrochanter hip fracture History of tonsillectomy Family History Father Stroke Mother Lung cancer Social History Smoking and tobacco status: never smoked Second hand smoke exposure: No Alcohol intake: never Household members: family Housing: House Marital status: / Current occupational status: retired Physical Exam Const: COMMON NORMALS: alert; negative for patient oriented x3 ORIENTATION/CONSCIOUSNESS: Yes oriented to person; not oriented to place and not oriented to time HENMT: COMMON NORMALS: normocephalic and atraumatic HEAD & SCALP: normocephalic and atraumatic Eye: COMMON NORMALS: Equal, round and reactive pupils present and conjunctivae normal CONJUNCTIVA: Yes conjunctivae normal PUPIL: Yes Equal, round and reactive pupils present Neck/C-Spine: COMMON NORMALS: full ROM and supple Chest: COMMONS NORMALS: normal inspection of the chest and normal palpation of entire chest wall Resp: COMMON NORMALS: normal respiratory effort and clear to auscultation bilaterally AUSCULTATION: clear to auscultation bilaterally Cardio: COMMON NORMALS: regular rate and regular rhythm RATE: regular rate RHYTHM: regular rhythm GI: COMMON NORMALS: Normal to inspection, nondistended, normoactive bowel sounds present and non-tender Extremity: COMMON NORMALS: normal to inspection Neuro: COMMON NORMALS: no focal motor deficits; negative for patient oriented x3 SENSORIUM/ORIENTATION: Yes alert, Yes oriented to person, No oriented to place and No oriented to time Psych: COMMON NORMALS: negative for mental status grossly normal Skin: COMMON NORMALS: no rashes or lesions noted GENERAL SKIN EXAM: no rashes or lesions noted Course Vital Signs: Vital signs: Vital Signs Temperature 97.6 F 01/21/23 22:40 Pulse Rate 80 01/22/23 00:55 Respiratory Rate 18 01/22/23 00:55 Blood Pressure 144/83 01/22/23 00:55 Pulse Oximetry 81 L 01/22/23 00:55 Oxygen Delivery Me thod 01/21/23 22:44 MDM - Altered Mental Status Medical Decision Making Patient presents here with generalized weakness along with increased confusion no focal neurodeficits here she been gradually declining over a week she does have a UTI will admit this time for IV antibiotics. Lab Data 01/21/23 22:50 01/21/23 22:50 Radiology Impressions Chest X-Ray 01/21/23 22:37 IMPRESSION: No acute finding. Head CT 01/21/23 22:37 IMPRESSION: 1. No focal hemorrhage or midline shift. 2. Moderately severe age-related change. 3. Prominent area of right parietotemporal hypodensity, which may be due to subacute or chronic infarction. Based on the CT appearance and conspicuity, this is probably old. Advise correlation. There are no priors for comparison. 4. Very severe atherosclerotic disease. Head/Neck CTA 01/21/23 22:37 IMPRESSION: 1. Moderate intracranial atherosclerotic disease as detailed above. No acute occlusion. 2. See same-day head CT. IMPRESSION: 1. No acute occlusion identified. 2. Severe 80% left proximal ICA stenosis. 3. Moderate 60% right proximal ICA stenosis. 4. 60% right vertebral artery origin stenosis. 5. Dominant left vertebral artery. REFERENCES: NASCET CRITERIA. The degree of stenosis in the cervical segment of the internal carotid artery is based on NASCET criteria. Normal is no stenosis. Mild is less than 50% stenosis. Moderate is 50-69% stenosis. Severe is 70% to 99% stenosis. Total occlusion is no detectable patent lumen. Laboratory Results WBC 12.6 10^3/uL (4.0-10.0) H 01/21/23 22:50 RBC 4.12 10^6/uL (4.1-5.3) 01/21/23 22:50 Hgb 13.3 g/dL (11.5-15.3) 01/21/23 22:50 Hct 41.3 % (37.0-47.0) 01/21/23 22:50 MCV 100.2 fl (81-99) H 01/21/23 22:50 MCH 32.3 pg (28.0-34.0) 01/21/23 22:50 MCHC 32.2 g/dL (30.0-36.0) 01/21/23 22:50 RDW 13.9 % (12.1-15.1) 01/21/23 22:50 Plt Count 244 10^3/cmm (130-400) 01/21/23 22:50 MPV 9.6 fL (7.4-10.4) 01/21/23 22:50 Neut % (Auto) 73.1 % 01/21/23 22:50 Lymph % (Auto) 17.8 % 01/21/23 22:50 [place] % (Auto) 7.8 % 01/21/23 22:50 Eos % (Auto) 0.3 % 01/21/23 22:50 Baso % (Auto) 0.4 % 01/21/23 22:50 Neut # (Auto) 9.23 10^3/uL (1.8-7.7) H 01/21/23 22:50 Lymph # (Auto) 2.3 10^3/uL (0.8-4.8) 01/21/23 22:50 [place] # (Auto) 1.0 10^3/uL (0.2-0.9) H 01/21/23 22:50 Eos # (Auto) 0.0 10^3/uL (0.0-0.8) 01/21/23 22:50 Baso # (Auto) 0.1 10^3/uL (0.0-0.1) 01/21/23 22:50 Nucleated RBC % (auto) 0 % 01/21/23 22:50 Nucleated RBCs # 0.0 /100WBC 01/21/23 22:50 PT 18.40 SECONDS (12.1-14.9) H 01/21/23 23:48 INR 1.48 (0.8-1.2) H 01/21/23 23:48 Sodium 135 mmol/L (136-145) L 01/21/23 22:50 Potassium 4.5 mmol/L (3.5-5.1) 01/21/23 22:50 Chloride 102 mmol/L (98-107) 01/21/23 22:50 Carbon Dioxide 23 mmol/L (22-29) 01/21/23 22:50 Anion Gap 14.5 (5-19) 01/21/23 22:50 BUN 15 mg/dL (8-23) 01/21/23 22:50 Creatinine 1.0 mg/dL (0.5-0.9) H 01/21/23 22:50 GFR Calculation Not Reportable 01/21/23 22:50 Glucose 96 mg/dL (65-115) 01/21/23 22:50 POC Glucose 90 mg/dL (70-110) 01/21/23 23:14 Calculated Osmolality 281 mOsm/kg (285-295) L 01/21/23 22:50 Calcium 8.6 mg/dL (8.5-10.5) 01/21/23 22:50 Total Bilirubin 0.5 mg/dL (0.15-1.2) 01/21/23 22:50 AST 20 U/L (0-32) 01/21/23 22:50 ALT 8 U/L (0-33) 01/21/23 22:50 Alkaline Phosphatase 116 U/L (35-105) H 01/21/23 22:50 Troponin T Baseline 11 ng/L (0-10) H 01/21/23 22:50 Total Protein 6.6 g/dL (6.6-8.7) 01/21/23 22:50 Albumin 2.9 g/dL (3.5-5.2) L 01/21/23 22:50 Globulin 3.7 g/dL (1.3-4.6) 01/21/23 22:50 Urine Color Colorless (Yellow) 01/22/23 00:40 Urine Appearance Clear (CLEAR) 01/22/23 00:40 Urine pH 7 (5-7) 01/22/23 00:40 Ur Specific [place] 1.010 (1.005-1.030) 01/22/23 00:40 Urine Protein Neg (Negative) 01/22/23 00:40 Urine Glucose (UA) Norm (Normal) 01/22/23 00:40 Urine Ketones Negative (Negative) 01/22/23 00:40 Urine Blood 2+ (Negative) H 01/22/23 00:40 Urine Nitrate Positive (Negative) H 01/22/23 00:40 Urine Bilirubin Neg (Negative) 01/22/23 00:40 Urine Urobilinogen Norm mg/dL (Negative) 01/22/23 00:40 Ur Leukocyte Esterase Trace (Negative) H 01/22/23 00:40 Urine RBC 10-15 /hpf (0-2) H 01/22/23 00:40 Urine WBC 25-40 /hpf (0-5) H 01/22/23 00:40 Ur Squamous Epith Cells 0-4 /hpf (0-5) H 01/22/23 00:40 Amorphous Sediment Not Reportable 01/22/23 00:40 Urine Bacteria 3+ /hpf (NONE) H 01/22/23 00:40 Discharge Plan Discharge Patient Disposition: Admitted As Inpatient Clinical Impression: Acute cystitis, Weakness Condition: Stable Coding Level of Care Code ED [employer] Secretary for Arsen King
--- NOTE | 2023-01-21 23:17 | ECG_ITS ---
[facility] Test Date: 2023-01-21 Pat Name: Radha Lira Department: Room: Gender: Female Ticket Manager: : 1940 Requested By: Rosangela Hsu Order Number: [id number] Ricarda MD: Fredy Davila M.D. Measurements Intervals [place] Rate: 74 P: 0 NH: 0 QRS: -54 QRSD: 77 T: 27 QT: 393 QTc: 437 Interpretive Statements ATRIAL FIBRILLATION LEFT AXIS DEVIATION [QRS AXIS < -30] LOW QRS VOLTAGE IN PRECORDIAL LEADS [QRS DEFLECTION < 1.0 mV IN CHEST LEADS] POSSIBLE ANTERIOR MYOCARDIAL INFARCTION , OF INDETERMINATE AGE [30 ms Q WAVE IN V3/V4, OR R < 0.2 mV IN V4] Compared to ECG 01/15/2022 11:48:11 Left-axis deviation now present Myocardial infarct finding still present Electronically Signed On 01-22-2023 7:40:38 CDT by Fredy Davila M.D. [id number]
[2023-01-21 23:19] LABS: Troponin(5th) Baseline 11 ng/L (0-10)
[2023-01-21 23:20] LABS: Alanine Aminotransferase 8 U/L (0-33); Albumin Level 2.9 g/dL (3.5-5.2); Alkaline Phosphatase 116 U/L (35-105); Blood Urea Nitrogen 15 mg/dL (8-23); Calcium 8.6 mg/dL (8.5-10.5); Carbon Dioxide 23 mmol/L (22-29); Chloride 102 mmol/L (98-107); Creatinine Clr Calc Pharmacy 28.9163; Globulin 3.7 g/dL (1.3-4.6); Glucose 96 mg/dL (65-115); Osmolality Calculated 281 mOsm/kg (285-295); Sodium 135 mmol/L (136-145); Total Bilirubin 0.5 mg/dL (0.15-1.2); Total Protein 6.6 g/dL (6.6-8.7)
[2023-01-21 23:23] LABS: Anion Gap 14.5 (5-19); Aspartate Amino Transferase 20 U/L (0-32); Potassium 4.5 mmol/L (3.5-5.1)
[2023-01-21 23:24] LABS: Glucose Point of Care 90 mg/dL (70-110)
[2023-01-22] VITALS (23 sets, daily range): BP systolic 122–157; BP diastolic 54–84; PULSE 68–153; RESP 14–24; TEMP 36.3–37.5; O2SAT 81–98
[2023-01-22] MEDS: iohexol 350 mg/mL 500 mL Btl (per mL) IV (00:05)
--- NOTE | 2023-01-22 00:23 | ECG_ITS ---
[facility] Test Date: 2023-01-22 Pat Name: Radha Lira Department: Room: Gender: Female [employer] Set[employer] Installer: : 1940 Requested By: Rosangela Hsu Order Number: [id number] Ricarda MD: Octavia Lynn M.D. Measurements Intervals [place] Rate: 72 P: 0 SC: 0 QRS: 268 QRSD: 73 T: 52 QT: 319 QTc: 350 Interpretive Statements ATRIAL FIBRILLATION INDETERMINATE AXIS LOW QRS VOLTAGE IN PRECORDIAL LEADS [QRS DEFLECTION < 1.0 mV IN CHEST LEADS] POSSIBLE ANTERIOR MYOCARDIAL INFARCTION , OF INDETERMINATE AGE [30 ms Q WAVE IN V3/V4, OR R < 0.2 mV IN V4] Compared to ECG 01/21/2023 23:17:58 Indeterminate axis now present Left-axis deviation no longer present Myocardial infarct finding still present Electronically Signed On 01-22-2023 22:55:53 CDT by Octavia Lynn M.D. [id number]
[2023-01-22 00:39] LABS: INR 1.48 (0.8-1.2)
[2023-01-22 01:01] LABS: Urine Appearance Clear (CLEAR); Urine Color Colorless (Yellow); pH Urine 7 (5-7)
[2023-01-22 01:02] LABS: Add Urine Microscopic? YES; Bilirubin Urine Neg (Negative); Blood Urine 2+ (Negative); Glucose Urine UA Norm (Normal); Ketones Urine Negative (Negative); Leukocyte Esterase Urine Trace (Negative); Nitrate Urine Positive (Negative); Protein Urine Neg (Negative); Urobilinogen Urine Norm (Negative)
[2023-01-22 01:04] LABS: WBC Urine 25-40 /hpf (0-5)
[2023-01-22 01:05] LABS: Add Urine Culture? Yes; Bacteria Urine 3+ /hpf; Squamous Epithelial Cell Urine 0-4 /hpf (0-5)
[2023-01-22] MEDS: cefTRIAXone 1,000 MG in sodium chloride 0.9% (plus) 50 ML 100 MG IV (01:12)
--- NOTE | 2023-01-22 02:04 | PC.NURSE ---
pt arrived on [facility] unit at this time.
--- NOTE | 2023-01-22 02:13 | PC.NURSE ---
Night MD at bedside with this nurse and family member at this time.
--- NOTE | 2023-01-22 02:39 | PC.NURSE ---
Daughter at bedside during assessment, pt did finally open eyes to verbal command at this time.
--- NOTE | 2023-01-22 02:57 | P.HP_ITS ---
Providers/Chief Complaint Admitting Physician: Kian Coronel Primary Care Provider: Bianka Lowery DO Chief Complaint: AMS History of Present Illness 82-year-old lady with advanced Alzheimer's dementia, family has been based, steady, dressed and changed, cleaned by her daughter. She will not eat if she is not fed. She does recognize her daughter, she may know where she is at times. Has been much more confused in the last several days. Lethargic. Mostly sleeping. Daughter states that she usually sleeps mostly on the left side. She may try to reposition herself in bed, normally does not try to climb out of bed. Daughter states that they are mental status has significantly worsened currently, she has been also not understanding directions well, and her daughter has had a very difficult time trying to care for her at home. She was brought in for evaluation to ER where on urinalysis she is found to have urinary tract infection. Additionally on CT of the head noted to have prominent area of right parietotemporal hypodensity, may be due to subacute or chronic infarction. Based on imaging probably old. No priors for comparison. Very severe atherosclerotic disease. Moderately severe age-related change. No acute hemorrhage or midline shift. CT angiogram head and neck shows severe 80% left proximal ICA stenosis, moderate 60% right proximal ICA stenosis, 16 right vertebral artery origin stenosis. Dominant left vertebral artery. Moderate intracranial atherosclerotic disease. Chest x-ray without acute findings. Due to mental status history obtained from her daughter. Review of Systems General: Reports: ROS unobtainable due to mental status Medications/Allergies Home Medications Medication Instructions Recorded Confirmed Last Taken Type alprazolam 0.5 mg tablet 0.5 mg PO QID PRN anxiety 12/02/19 07/10/22 07/10/22 History carvedilol 6.25 mg tablet 9.375 mg PO BID 12/02/19 07/10/22 07/10/22 History diltiazem HCl 90 mg 90 mg PO TID 12/02/19 07/10/22 07/10/22 History capsule,extended release 12 hr gabapentin 300 mg capsule 300 mg PO BID 12/02/19 07/10/22 07/10/22 History levothyroxine 25 mcg capsule 25 mcg PO DAILY 12/02/19 07/10/22 07/10/22 History cetirizine 10 mg capsule 10 mg PO DAILY 02/01/20 07/10/22 07/10/22 History calcitonin (salmon) 200 1 spray intranasal (ALT) DAILY 01/21/21 07/10/22 07/10/22 History unit/actuation nasal spray albuterol sulfate 90 mcg/actuation 2 puff inhalation QID SHORTNESS OF 01/15/22 07/10/22 Unknown History aerosol inhaler (ProAir HFA) BREATH bupropion HCl 150 mg 24 hr tablet, 150 mg PO DAILY 01/15/22 07/10/22 07/10/22 History extended release apixaban 5 mg tablet (Eliquis) 5 mg PO BID #180 tabs 07/22/22 Unknown Rx donepezil 10 mg tablet See Rx Instructions .Route 11/10/22 Unknown Rx .COMPLEX #90 tabs Allergies Allergy/AdvReac Type Severity Reaction Status Date / Time Penicillins Allergy Unknown rash Verified 01/21/23 22:44 propoxyphene Allergy Unknown Unknown Verified 01/21/23 22:44 PFSH Acute PFSH: Medical History Alzheimer's dementia without behavioral disturbance Anticoagulation adequate with anticoagulant therapy Eliquis Atrial fibrillation CKD (chronic kidney disease) Dyslipidemia HTN (hypertension) Lumbar compression fracture Lumbar stenosis with neurogenic claudication Surgical History History of cholecystectomy (~2013) History of hip surgery (~2019) Closed reduction with intramedullary nailing with proximal and distal interlocking to treat left intertrochanter hip fracture History of tonsillectomy Family History Father Stroke Mother Lung cancer Social History Smoking and tobacco status: never smoked Second hand smoke exposure: No Alcohol intake: never Household members: family Housing: House Marital status: / Current occupational status: retired Vitals/I&O/Wt Last Vital Signs Temp 97.6 F 01/21/23 22:40 Pulse 84 01/22/23 01:45 Resp 18 01/22/23 01:45 BP 155/60 01/22/23 01:45 Pulse Ox 96 01/22/23 01:45 O2 Del Method 01/22/23 02:21 01/21/23 01/21/23 01/22/23 14:59 22:59 06:59 Intake Total 50 / 50 Balance 50 / 50 Weight last 48 hrs Weight 40.823 kg Physical Exam Narrative: She is curled up on her left side, sleeping, mumbles in response to her daughter, does not wish to open her eyes, does not participate in exam or follow directions. Otherwise does not appear in distress unless she is being examined or repositioned. Const: GENERAL APPEARANCE: comfortable; not cooperative (Grimaces, closes her eyes tighter when trying to examine her.) ORIENTATION/CONSCIOUSNESS: Yes confused HENMT: OTHER: Poor dentition, refuses to smile or open mouth when asked Neck/C-Spine: COMMON NORMALS: no JVD Resp: COMMON NORMALS: normal respiratory effort and clear to auscultation bilaterally AUSCULTATION: clear to auscultation bilaterally Cardio: COMMON NORMALS: no JVD, regular rhythm, S1 normal heart sound present, S2 normal heart sound present and No murmurs present (Cardio) RHYTHM: regular rhythm HEART SOUNDS: S1 normal heart sound present and S2 normal heart sound present GI: COMMON NORMALS: Soft to palpation and non-tender PALPATION: Yes Soft to palpation Extremity: COMMON NORMALS: no joint enlargement and no pedal edema Neuro: OTHER: Laying on her L side. Does not participate in exam. No obvious rigidity. No obvious facial droop. When daughter tried to speak to her, mumbles in response with eyes closed. Skin: COMMON NORMALS: no rashes or lesions noted (on exposed skin) Data 01/21/23 22:50 01/21/23 22:50 A&P Assessment and plan (1) AMS (altered mental status): Acute encephalopathy, with delirium, withdrawn, not participating in care, not eating. Complicated urinary tract infection. Started on Rocephin, continue. Possible CVA: Right frontotemporal hypodensity noted on prior CT. Not reported on CTA, but is noted to have significant burden of arterial disease in her neck. Not likely to be a candidate for vascular surgery. Consideration may be given to antiplatelet, not sure that she would benefit from statin. Known atrial fibrillation on anticoagulation. Please obtain ST evaluation once she is more alert. N.p.o. for now until she is more alert. Fall risk precautions. Reorient. We will assess TSH, folic acid, B12, vitamin D. (2) Acute cystitis: Complicated UTI with acute encephalopathy. Continue ceftriaxone. Follow-up urine culture. (3) CVA (cerebral vascular accident): Possible CVA as above. (4) Alzheimer's dementia without behavioral disturbance: Needs assistance with eating, drinking, otherwise she will not do it herself. Needs assistance with all ADLs. Risk of fall. Does not normally try to climb out of bed, but may reposition herself close to the edge. Discussed with her daughter raising bed rails on the side she is laying on. Fall precautions. (5) Goals of care, counseling/discussion: Recently significant functional decline, not participating in care, making care much more difficult for her daughter at home. Case management consultation for discussions regarding long term placement. She is not likely to participate in PT, OT. She has had quite poor quality of life, does not get out of her recliner or bed. Unable to understand the care that is provided to her. Needs to be fed. Gets startled and scared over benign things. Discussing with her daughter, decision to change CODE STATUS to DNR, no CPR in case of cardiopulmonary arrest. Daughter is in agreement that CPR would be likely more detrimental than beneficial in her case, especially with noted m ultivessel arterial disease in her neck. Daughter has not thought about hospice or ever offered the services by anyone. Not sure about that yet, but discussed given it is currently middle night, this could be something considered further during hospitalization as she is not likely to be able to participate in PT, OT. Sounds like her mother is reaching end-stage dementia, although her mental status and participation care certainly is better than currently, likely with acute encephalopathy from delirium. Discussed with her mother will be at fall risk including at the long term. May be more likely to get confused here in the hospital and/or at long term. Continue goals of care discussions. Case management consultation for arrangements for long term. Discussed with daughter consideration of additionally obtaining a caregiver given her advanced dementia she may certainly be at risk of complications. Plan A-fib, chronic anticoagulation CKD HLD HTN Lumbar compression fractures Lumbar stenosis with neurogenic claudication Requesting medications to be confirmed, please reconcile once available resuming once she is able to tolerate oral intake. Discussed with ER physician, reviewed ER documentation. Attestations Medical Necessity Statement*: Admission of over 20 assessment management of complicated UTI with acute encephalopathy. Diagnoses AMS (altered mental status) R41.82 Acute cystitis N30.00 CVA (cerebral vascular accident) I63.9 Alzheimer's dementia without behavioral disturbance G30.9; F02.80 Goals of care, counseling/discussion Z71.89
[2023-01-22] MEDS: aspirin 300 mg Supp 150 MG PR (03:54)
[2023-01-22] MEDS: heparin 5,000 unit/mL INJ 1 mL 5000 UNIT SUBCUT ×2 (03:57→15:26)
--- NOTE | 2023-01-22 04:37 | ECG_ITS ---
[facility] Test Date: 2023-01-22 Pat Name: Radha Lira Department: Room: 257 Gender: Female Administrative Manager: : 1940 Requested By: Rosangela Hsu Order Number: [id number] Ricarda MD: Octavia Lynn M.D. Measurements Intervals [place] Rate: 89 P: 0 [place]: 0 QRS: -9 QRSD: 78 T: 5 QT: 383 QTc: 468 Interpretive Statements ATRIAL FIBRILLATION LOW QRS VOLTAGE [QRS DEFLECTION < 0.5/1.0 mV IN LIMB/CHEST LEADS] POSSIBLE ANTERIOR MYOCARDIAL INFARCTION , PROBABLY OLD [30 ms Q WAVE IN V3/V4, OR R < 0.2 mV IN V4] Compared to ECG 01/22/2023 00:23:15 Indeterminate axis no longer present Myocardial infarct finding still present Electronically Signed On 01-22-2023 22:56:16 CDT by Octavia Lynn M.D. [id number]
--- NOTE | 2023-01-22 06:18 | US_ITS ---
WS: [id number] RENAL ULTRASOUND REASON FOR EXAM: Assess for any hydoronephrosis COMPARISON: None available. ORDER DATE: 01/22/2023 6:26 AM TECHNIQUE: Grayscale and Doppler ultrasound examination of the kidneys. FINDINGS: Right kidney: Right kidney measures 8.6 cm x 3.2 cm x 3.8 cm. Cortical diameter 10.6 mm Left kidney: Left kidney measures 8.1 cm x 3.6 cm x 4.3 cm. Cortical diameter 10.2 mm Satisfactory duplex renal blood flow bilaterally. No sign of hydronephrosis. Urinary bladder partially distended US/US renal BI* [id number] IMPRESSION: No acute change
[2023-01-22 06:39] LABS: Thyroid Stimulating Hormone 3.08 uIU/mL (0.27-4.20)
[2023-01-22 07:29] LABS: 25 Hydroxy Vitamin D 36 ng/mL (30-100); Folate Level 4.3 ng/mL (4.8-37.3); Vitamin B12 255 pg/mL (232-1245)
--- NOTE | 2023-01-22 17:26 | PM.MISC ---
Miscellaneous Note Note: Overnight H&P Reviewed. Patient Is Slightly More Awake Now. Requesting to Eat. We Will Start a Pur?ed Diet As Patient Takes at Home. Continue Ceftriaxone. Awaiting Urine Culture.
[2023-01-23] VITALS: BP 148/70; PULSE 83; RESP 21; TEMP 37.2; O2SAT 91
[2023-01-23] MEDS: cefTRIAXone 1,000 MG in sodium chloride 0.9% (plus) 50 ML 100 MG IV (00:26)
[2023-01-23 04:00] VITALS: BP 138/78; PULSE 64; RESP 18; TEMP 36.6; O2SAT 99
[2023-01-23] MEDS: heparin 5,000 unit/mL INJ 1 mL 5000 UNIT SUBCUT ×2 (05:07→16:08)
[2023-01-23 06:27] LABS: Basophils # 0.1 10^3/uL (0.0-0.1); Basophils % 0.9 %; Eosinophils # 0.1 10^3/uL (0.0-0.8); Eosinophils % 1.3 %; Hematocrit 43.2 % (37.0-47.0); Hemoglobin 14.1 g/dL (11.5-15.3); Lymphocytes # 2.3 10^3/uL (0.8-4.8); Lymphocytes % 27.1 %; Mean Corpuscular HGB Conc 32.6 g/dL (30.0-36.0); Mean Corpuscular Hemoglobin 31.7 pg (28.0-34.0); Mean Corpuscular Volume 97.1 fl (81-99); Mean Platelet Volume 9.7 fL (7.4-10.4); Monocytes # 0.7 10^3/uL (0.2-0.9); Monocytes % 7.7 %; Neutrophils # 5.34 10^3/uL (1.8-7.7); Neutrophils % 62.4 %; Nucleated Red Blood Cells % 0 %; Platelet Count 269 10^3/cmm (130-400); Red Blood Count 4.45 10^6/uL (4.1-5.3); Red Cell Distribution Width 13.5 % (12.1-15.1); White Blood Count 8.6 10^3/uL (4.0-10.0)
[2023-01-23 06:44] LABS: Alanine Aminotransferase 9 U/L (0-33); Albumin Level 3.1 g/dL (3.5-5.2); Alkaline Phosphatase 135 U/L (35-105); Aspartate Amino Transferase 26 U/L (0-32); Blood Urea Nitrogen 11 mg/dL (8-23); Calcium 8.8 mg/dL (8.5-10.5); Carbon Dioxide 25 mmol/L (22-29); Chloride 99 mmol/L (98-107); Globulin 3.9 g/dL (1.3-4.6); Glucose 78 mg/dL (65-115); Osmolality Calculated 280 mOsm/kg (285-295); Sodium 136 mmol/L (136-145); Total Bilirubin 0.6 mg/dL (0.15-1.2)
[2023-01-23 08:00] VITALS: BP 170/92; PULSE 64; RESP 15; TEMP 36.4; O2SAT 99
[2023-01-23] MEDS: aspirin 300 mg Supp 150 MG PR (10:43)
[2023-01-23 15:57] VITALS: BP 136/68; PULSE 63; TEMP 36.6
--- NOTE | 2023-01-23 18:47 | PM.PN ---
Subjective Subjective: no acute events, patient awake, pleasantly confused, tolerating po intake. Urine culture showing GNR, pending final identification Medications: Reviewed: Yes Vitals/I&O/Wt Last Vital Signs Temp 97.9 F 01/23/23 15:57 Pulse 63 01/23/23 15:57 Resp 15 01/23/23 08:00 BP 136/68 01/23/23 15:57 Pulse Ox 99 01/23/23 08:00 O2 Del Method 01/23/23 04:00 01/23/23 01/23/23 01/23/23 06:59 14:59 22:59 Intake Total 50 / 50 200 / 200 Balance 50 / 50 200 / 200 Weight last 48 hrs Weight 40.823 kg Physical Exam Narrative: General: No acute distress, AO x1-2, pleasant HEENT: PERRLA, pupils bilaterally equal and reactive, pallors not present Chest: Normal vesicular breath sounds, no added sounds, equal good air entry bilaterally CVS: S1-S2 regular, no murmurs, no tachycardia, no gallops, no rubs Abdomen: Soft, nontender, no organomegaly, bowel sounds present Neuro: No focal deficits, no facial deformity, AO x3, power 5/5 in all limbs Data 01/23/23 06:09 01/23/23 06:09 Micro: Microbiology 01/22/23 00:40 Urine Culture - Preliminary Urine,Clean Catch Gram Negative Rods A&P Assessment and plan (1) AMS (altered mental status): Currently mental status appears to be at baseline She is awake, alert, tolerating po intake, remains plesantly confused Continue Rocephin for UTI , urine cx with GNR, pending final identification. Possible CVA: Right frontotemporal hypodensity noted on prior CT. WNL TSH, folic acid, B12, vitamin D. Resume home medications incl xanax prn, eliquis, carvedilol, cardizem, levothyroxine (2) Acute cystitis: Complicated UTI with acute encephalopathy. Continue ceftriaxone. Follow-up urine culture. (3) CVA (cerebral vascular accident): Possible CVA as above. (4) Alzheimer's dementia without behavioral disturbance: Needs assistance with eating, drinking, otherwise she will not do it herself. Needs assistance with all ADLs. Risk of fall. Does not normally try to climb out of bed, but may reposition herself close to the edge. (5) Goals of care, counseling/discussion: Dispo: will likely benefit from discharge to SNF. Patient has a state appointed guradian per review of records. Will discuss with guardian Plan A-fib, chronic anticoagulation CKD HLD HTN Lumbar compression fractures Lumbar stenosis with neurogenic claudication Attestations Medical Necessity Statement*: iv abx for UTI, pending urine cx, disposiiton decisions Coding Level of Care Code Acute Code for Chg Fwd Diagnoses AMS (altered mental status) R41.82 Acute cystitis N30.00 CVA (cerebral vascular accident) I63.9 Alzheimer's dementia without behavioral disturbance G30.9; F02.80 Goals of care, counseling/discussion Z71.89
[2023-01-23] MEDS: carvedilol 6.25 mg Tablet 9.375 MG PO (18:57)
[2023-01-23 20:00] VITALS: BP 108/52; PULSE 72; RESP 18; TEMP 36.4; O2SAT 97
[2023-01-24] VITALS: BP 168/74; PULSE 93; RESP 16; TEMP 36.7; O2SAT 92
[2023-01-24] MEDS: cefTRIAXone 1,000 MG in sodium chloride 0.9% (plus) 50 ML 100 MG IV (00:03)
[2023-01-24 04:00] VITALS: BP 160/75; PULSE 103; RESP 17; TEMP 36.1; O2SAT 93
[2023-01-24] MEDS: donepezil 5 MG Tablet 10 MG PO (05:17)
[2023-01-24 08:00] VITALS: BP 144/80; PULSE 99; RESP 18; TEMP 36.3; O2SAT 99
[2023-01-24] MEDS: loratadine 10 mg Tablet PO (09:35)
[2023-01-24] MEDS: carvedilol 6.25 mg Tablet 9.375 MG PO ×2 (09:35→18:08)
[2023-01-24] MEDS: apixaban 5 mg Tablet PO ×2 (09:35→18:10)
[2023-01-24] MEDS: dilTIAZem 30 mg Tablet PO ×2 (09:35→18:09)
[2023-01-24] MEDS: levothyroxine 25 mcg Tablet PO (09:35)
[2023-01-24] MEDS: multivitamin therapeutic Tablet 1 TAB PO (09:35)
[2023-01-24 12:00] VITALS: BP 120/71; RESP 16; TEMP 36.3
[2023-01-24 15:52] VITALS: BP 134/68; PULSE 79; RESP 16; TEMP 36.3
--- NOTE | 2023-01-24 17:49 | P.PN_ITS ---
Subjective Subjective: No acute interim events. Patient remains pleasantly confused. Gram-negative rods still pending identification, awaiting appropriate disposition planning. Medications: Reviewed: Yes Vitals/I&O/Wt Last Vital Signs Temp 97.4 F L 01/24/23 15:52 Pulse 79 01/24/23 15:52 Resp 16 01/24/23 15:52 BP 134/68 01/24/23 15:52 Pulse Ox 99 01/24/23 08:00 O2 Del Method 01/24/23 08:00 01/24/23 01/24/23 01/24/23 06:59 14:59 22:59 Intake Total 50 / 250 240 / 240 Balance 50 / 250 240 / 240 Physical Exam Narrative: General: No acute distress, AO x1-2, pleasant HEENT: PERRLA, pupils bilaterally equal and reactive, pallors not present Chest: Normal vesicular breath sounds, no added sounds, equal good air entry bilaterally CVS: S1-S2 regular, no murmurs, no tachycardia, no gallops, no rubs Abdomen: Soft, nontender, no organomegaly, bowel sounds present Neuro: No focal deficits, no facial deformity, AO x3, power 5/5 in all limbs Data 01/23/23 06:09 01/23/23 06:09 A&P Assessment and plan (1) AMS (altered mental status): Currently mental status appears to be at baseline She is awake, alert, tolerating po intake, remains plesantly confused Continue Rocephin for UTI , urine cx with GNR, pending final identification. Possible CVA: Right frontotemporal hypodensity noted on prior CT. WNL TSH, folic acid, B12, vitamin D. Resume home medications incl xanax prn, eliquis, carvedilol, cardizem, levothyroxine (2) Acute cystitis: Complicated UTI with acute encephalopathy. Continue ceftriaxone. Follow-up urine culture. (3) CVA (cerebral vascular accident): Possible CVA as above. (4) Alzheimer's dementia without behavioral disturbance: Needs assistance with eating, drinking, otherwise she will not do it herself. Needs assistance with all ADLs. Risk of fall. Does not normally try to climb out of bed, but may reposition herself close to the edge. (5) Goals of care, counseling/discussion: Dispo: will likely benefit from discharge to SNF. Patient has a state appointed guradian per review of records. Will discuss with guardian Plan A-fib, chronic anticoagulation CKD HLD HTN Lumbar compression fractures Lumbar stenosis with neurogenic claudication Attestations Medical Necessity Statement*: Appropriate disposition planning ongoing. Patient needs help with all necessary ADLs. Plan transition to shelter with hospice in view of advanced dementia. Coding Level of Care Code Acute Code for Chg Fwd Diagnoses AMS (altered mental status) R41.82 Acute cystitis N30.00 CVA (cerebral vascular accident) I63.9 Alzheimer's dementia without behavioral disturbance G30.9; F02.80 Goals of care, counseling/discussion Z71.89
[2023-01-24 19:17] VITALS: BP 130/56; PULSE 89; RESP 17; TEMP 36.4; O2SAT 97
[2023-01-25] VITALS (7 sets, daily range): BP systolic 113–147; BP diastolic 54–74; PULSE 63–108; RESP 15–18; TEMP 36.4–37.2; O2SAT 90–98
[2023-01-25] MEDS: cefTRIAXone 1,000 MG in sodium chloride 0.9% (plus) 50 ML 100 MG IV (00:02)
[2023-01-25] MEDS: donepezil 5 MG Tablet 10 MG PO (05:48)
--- NOTE | 2023-01-25 09:03 | PC.SOCIAL ---
IMM Update pg 2 of IMM updated and reviewed w/ patients legal guardian Nicko Curryuett. Copy left @ bedside and copy in chart updated.
[2023-01-25] MEDS: carvedilol 6.25 mg Tablet 9.375 MG PO ×2 (09:18→18:25)
[2023-01-25] MEDS: multivitamin therapeutic Tablet 1 TAB PO (09:19)
[2023-01-25] MEDS: apixaban 5 mg Tablet PO ×2 (09:19→18:25)
[2023-01-25] MEDS: dilTIAZem 30 mg Tablet PO ×2 (09:19→18:25)
[2023-01-25] MEDS: loratadine 10 mg Tablet PO (09:19)
[2023-01-25] MEDS: levothyroxine 25 mcg Tablet PO (09:19)
--- NOTE | 2023-01-25 16:58 | PM.PN ---
Subjective Subjective: Urine cx now showing E.coli, driscoll-S. No acute interim events. Medications: Reviewed: Yes Vitals/I&O/Wt Last Vital Signs Temp 97.6 F 01/25/23 16:00 Pulse 88 01/25/23 16:00 Resp 17 01/25/23 16:00 BP 119/62 01/25/23 16:00 Pulse Ox 96 01/25/23 16:00 O2 Del Method 01/25/23 16:00 01/25/23 01/25/23 01/25/23 06:59 14:59 22:59 Intake Total 60 / 480 290 / 290 Balance 60 / 480 290 / 290 Physical Exam Narrative: General: No acute distress, AO x1-2, pleasant HEENT: PERRLA, pupils bilaterally equal and reactive, pallors not present Chest: Normal vesicular breath sounds, no added sounds, equal good air entry bilaterally CVS: S1-S2 regular, no murmurs, no tachycardia, no gallops, no rubs Abdomen: Soft, nontender, no organomegaly, bowel sounds present Neuro: No focal deficits Data 01/23/23 06:09 01/23/23 06:09 Micro: Microbiology 01/22/23 00:40 Urine Culture - Final Urine,Clean Catch Escherichia coli A&P Assessment and plan (1) AMS (altered mental status): Currently mental status appears to be at baseline She is awake, alert, tolerating po intake, remains plesantly confused Continue Rocephin for UTI , urine cx with GNR, now identified as driscoll-S e.coli Possible CVA: Right frontotemporal hypodensity noted on prior CT. WNL TSH, folic acid, B12, vitamin D. Resume home medications incl xanax prn, eliquis, carvedilol, cardizem, levothyroxine (2) Acute cystitis: Complicated UTI with acute encephalopathy. Continue ceftriaxone. (3) CVA (cerebral vascular accident): Possible CVA as above. (4) Alzheimer's dementia without behavioral disturbance: Needs assistance with eating, drinking, otherwise she will not do it herself. Needs assistance with all ADLs. Risk of fall. Does not normally try to climb out of bed, but may reposition herself close to the edge. (5) Goals of care, counseling/discussion: Dispo: will likely benefit from discharge to SNF. Patient has a state appointed guradian per review of records. Given her advanced dementia an dinability to perfrom ADLS, may be a candiadate for SNF with hospice Plan A-fib, chronic anticoagulation CKD HLD HTN Lumbar compression fractures Lumbar stenosis with neurogenic claudication Attestations Medical Necessity Statement*: awaiting appropriate disposition planning Coding Level of Care Code Acute Code for Chg Fwd Diagnoses AMS (altered mental status) R41.82 Acute cystitis N30.00 CVA (cerebral vascular accident) I63.9 Alzheimer's dementia without behavioral disturbance G30.9; F02.80 Goals of care, counseling/discussion Z71.89
[2023-01-26] MEDS: cefTRIAXone 1,000 MG in sodium chloride 0.9% (plus) 50 ML 100 MG IV (01:19)
[2023-01-26 04:19] VITALS: BP 120/64; PULSE 60; RESP 16; TEMP 37.2; O2SAT 96
[2023-01-26] MEDS: donepezil 5 MG Tablet 10 MG PO (05:28)
[2023-01-26 07:45] VITALS: BP 132/73; PULSE 84; RESP 18; TEMP 36.4; O2SAT 97
[2023-01-26] MEDS: loratadine 10 mg Tablet PO (10:35)
[2023-01-26] MEDS: levothyroxine 25 mcg Tablet PO (10:35)
[2023-01-26] MEDS: apixaban 5 mg Tablet PO (10:35)
[2023-01-26] MEDS: multivitamin therapeutic Tablet 1 TAB PO (10:36)
[2023-01-26] MEDS: dilTIAZem 30 mg Tablet PO (10:36)
--- NOTE | 2023-01-26 11:06 | PM.DCS ---
Discharge Providers Date of Admission: 01/22/23 01:17 Date of Discharge: January 26, 2023 Attending Provider at Admission: Kian Coronel Attending Provider at Discharge: Shaun Welsh MD Primary Care Provider: Bianka Lowery DO Diagnoses at Discharge Discharge Diagnosis (1) AMS (altered mental status): Status: Acute (2) Acute cystitis: Status: Acute (3) CVA (cerebral vascular accident): Status: Acute (4) Alzheimer's dementia without behavioral disturbance: Status: Acute (5) Goals of care, counseling/discussion: Status: Acute Reason for Visit Reason for Visit: AMS Hospital Course Hospital Course 82F with advanced dementia, uanble to carry on any ADLs, lays in bed, pleasantly confused here for worsening mentation, daughter cant care for her at home anymore.During the hospital stay she was also managed for UTI, urine culture grew E. coli pansensitive, she was on ceftriaxone during the hospital stay, has been discharged on p.o. levofloxacin for additional 3 days to complete total 7 days of, antibiotics for UTI, patient was discharged to SNF with hospice due to advanced dementia, old CVA. Overall patient responded well to above medical management and was discharged to's SNF. Physical Exam Narrative: General: No acute distress, AO x1-2, pleasant HEENT: PERRLA, pupils bilaterally equal and reactive, pallors not present Chest: Normal vesicular breath sounds, no added sounds, equal good air entry bilaterally CVS: S1-S2 regular, no murmurs, no tachycardia, no gallops, no rubs Abdomen: Soft, nontender, no organomegaly, bowel sounds present Neuro: No focal deficits Discharge Data Studies Completed and Pending Completed Studies During Hospitalization Category Date Time Status CT angio headneck* [id number] Stat Cat Scan 01/21/23 22:[address] head wo con* [id number] Stat Cat Scan 01/21/23 22:37 Completed XR chest 1V portable [id number] Stat Exams 01/21/23 22:37 Completed US renal BI* [id number] Routine Ultrasound 01/22/23 06:18 Completed Pending at discharge Category Date Time Status COVID [SARS Covid-2 Antigen] Routine Lab 01/26/23 10:58 Uncollected Radiology Impressions Chest X-Ray 01/21/23 22:37 IMPRESSION: No acute finding. Head CT 01/21/23 22:37 IMPRESSION: 1. No focal hemorrhage or midline shift. 2. Moderately severe age-related change. 3. Prominent area of right parietotemporal hypodensity, which may be due to subacute or chronic infarction. Based on the CT appearance and conspicuity, this is probably old. Advise correlation. There are no priors for comparison. 4. Very severe atherosclerotic disease. Head/Neck CTA 01/21/23 22:37 IMPRESSION: 1. Moderate intracranial atherosclerotic disease as detailed above. No acute occlusion. 2. See same-day head CT. IMPRESSION: 1. No acute occlusion identified. 2. Severe 80% left proximal ICA stenosis. 3. Moderate 60% right proximal ICA stenosis. 4. 60% right vertebral artery origin stenosis. 5. Dominant left vertebral artery. REFERENCES: NASCET CRITERIA. The degree of stenosis in the cervical segment of the internal carotid artery is based on NASCET criteria. Normal is no stenosis. Mild is less than 50% stenosis. Moderate is 50-69% stenosis. Severe is 70% to 99% stenosis. Total occlusion is no detectable patent lumen. Renal Ultrasound 01/22/23 06:18 IMPRESSION: No acute change Laboratory Results WBC 8.6 10^3/uL (4.0-10.0) 01/23/23 06:09 RBC 4.45 10^6/uL (4.1-5.3) 01/23/23 06:09 Hgb 14.1 g/dL (11.5-15.3) 01/23/23 06:09 Hct 43.2 % (37.0-47.0) 01/23/23 06:09 MCV 97.1 fl (81-99) 01/23/23 06:09 MCH 31.7 pg (28.0-34.0) 01/23/23 06:09 MCHC 32.6 g/dL (30.0-36.0) 01/23/23 06:09 RDW 13.5 % (12.1-15.1) 01/23/23 06:09 Plt Count 269 10^3/cmm (130-400) 01/23/23 06:09 MPV 9.7 fL (7.4-10.4) 01/23/23 06:09 Neut % (Auto) 62.4 % 01/23/23 06:09 Lymph % (Auto) 27.1 % 01/23/23 06:09 [place] % (Auto) 7.7 % 01/23/23 06:09 Eos % (Auto) 1.3 % 01/23/23 06:09 Baso % (Auto) 0.9 % 01/23/23 06:09 Neut # (Auto) 5.34 10^3/uL (1.8-7.7) 01/23/23 06:09 Lymph # (Auto) 2.3 10^3/uL (0.8-4.8) 01/23/23 06:09 [place]rentiss # (Auto) 0.7 10^3/uL (0.2-0.9) 01/23/23 06:09 Eos # (Auto) 0.1 10^3/uL (0.0-0.8) 01/23/23 06:09 Baso # (Auto) 0.1 10^3/uL (0.0-0.1) 01/23/23 06:09 Nucleated RBC % (auto) 0 % 01/23/23 06:09 Nucleated RBCs # 0.0 /100WBC 01/23/23 06:09 PT 18.40 SECONDS (12.1-14.9) H 01/21/23 23:48 INR 1.48 (0.8-1.2) H 01/21/23 23:48 Sodium 136 mmol/L (136-145) 01/23/23 06:09 Potassium 4.0 mmol/L (3.5-5.1) 01/23/23 06:09 Chloride 99 mmol/L (98-107) 01/23/23 06:09 Carbon Dioxide 25 mmol/L (22-29) 01/23/23 06:09 Anion Gap 16.0 (5-19) 01/23/23 06:09 BUN 11 mg/dL (8-23) 01/23/23 06:09 Creatinine 0.8 mg/dL (0.5-0.9) 01/23/23 06:09 GFR Calculation Not Reportable 01/23/23 06:09 Glucose 78 mg/dL (65-115) 01/23/23 06:09 POC Glucose 90 mg/dL (70-110) 01/21/23 23:14 Calculated Osmolality 280 mOsm/kg (285-295) L 01/23/23 06:09 Calcium 8.8 mg/dL (8.5-10.5) 01/23/23 06:09 Total Bilirubin 0.6 mg/dL (0.15-1.2) 01/23/23 06:09 AST 26 U/L (0-32) 01/23/23 06:09 ALT 9 U/L (0-33) 01/23/23 06:09 Alkaline Phosphatase 135 U/L (35-105) H 01/23/23 06:09 Troponin T Baseline 11 ng/L (0-10) H 01/21/23 22:50 Troponin T Hi Sens 6Hr 10.80 ng/L (0-10) H 01/22/23 04:44 Troponin T Hi Sens 6Hr Delta -0.20 ng/L (0-12) L 01/22/23 04:44 Total Protein 7.0 g/dL (6.6-8.7) 01/23/23 06:09 Albumin 3.1 g/dL (3.5-5.2) L 01/23/23 06:09 Globulin 3.9 g/dL (1.3-4.6) 01/23/23 06:09 Vitamin B12 255 pg/mL (232-1245) 01/22/23 04:44 25-OH Vitamin D Total 36 ng/mL (30-100) 01/22/23 04:44 Folate 4.3 ng/mL (4.8-37.3) L 01/22/23 04:44 TSH 3.08 uIU/mL (0.27-4.20) 01/22/23 04:44 Urine Color Colorless (Yellow) 01/22/23 00:40 Urine Appearance Clear (CLEAR) 01/22/23 00:40 Urine pH 7 (5-7) 01/22/23 00:40 Ur Specific [place] 1.010 (1.005-1.030) 01/22/23 00:40 Urine Protein Neg (Negative) 01/22/23 00:40 Urine Glucose (UA) Norm (Normal) 01/22/23 00:40 Urine Ketones Negative (Negative) 01/22/23 00:40 Urine Blood 2+ (Negative) H 01/22/23 00:40 Urine Nitrate Positive (Negative) H 01/22/23 00:40 Urine Bilirubin Neg (Negative) 01/22/23 00:40 Urine Urobilinogen Norm mg/dL (Negative) 01/22/23 00:40 Ur Leukocyte Esterase Trace (Negative) H 01/22/23 00:40 Urine RBC 10-15 /hpf (0-2) H 01/22/23 00:40 Urine WBC 25-40 /hpf (0-5) H 01/22/23 00:40 Ur Squamous Epith Cells 0-4 /hpf (0-5) H 01/22/23 00:40 Amorphous Sediment Not Reportable 01/22/23 00:40 Urine Bacteria 3+ /hpf (NONE) H 01/22/23 00:40 Vitals Last Vital Signs Temp 97.5 F L 01/26/23 07:45 Pulse 84 01/26/23 07:45 Resp 18 01/26/23 07:45 BP 132/73 01/26/23 07:45 Pulse Ox 97 01/26/23 07:45 O2 Del Method 01/26/23 07:45 Discharge Plan Discharge Patient Disposition: Hospice - Medical Facility Condition: Stable Prescriptions: New Cardizem 30 mg tablet 30 mg PO BID Qty: 60 1RF levofloxacin 500 mg tablet 500 mg PO DAILY 3 Days Qty: 3 0RF Continued alprazolam 0.5 mg tablet 0.5 mg PO QID PRN (Reason: anxiety) carvedilol 6.25 mg tablet 9.375 mg PO BID Rx Instructions: ONE AND A HALF TABS TO EQUAL 9.375MG BID levothyroxine 25 mcg capsule 25 mcg PO DAILY Eliquis 5 mg tablet 5 mg PO BID Qty: 180 3RF donepezil 10 mg tablet 10 mg PO QAM Claritin 10 mg Tablet 10 mg PO DAILY Discontinued diltiazem HCl 90 mg capsule,extended release 12 hr 90 mg PO BID Discharge Orders: Discharge Order (Routine); Ordered 01/26/23 Ordered By: Shaun Welsh Referrals: [facility] [Outside] [facility] [Outside] Bianka Lowery DO [Primary Care Provider] - 1 week Patient Instructions: Diltiazem (By mouth), Levofloxacin (By mouth), Ischemic Stroke (DC), Opioid Safety Discharge Attestations Time Spent in Discharge Care*: greater than 30 min Quality Metrics Clinical Quality Measures [ No reported AMI, CVA or VTE this stay] Coding Level of Care Code Acute Code for Chg Fwd Diagnoses AMS (altered mental status) R41.82 Acute cystitis N30.00 CVA (cerebral vascular accident) I63.9 Alzheimer's dementia without behavioral disturbance G30.9; F02.80 Goals of care, counseling/discussion Z71.89
[2023-01-26] MEDS: carvedilol 6.25 mg Tablet 9.375 MG PO (11:34)
[2023-01-26 11:43] LABS: SARS Covid-2 Antigen negative (Negative)
[2023-01-26 12:00] VITALS: BP 124/67; PULSE 86; RESP 18; TEMP 36.3; O2SAT 97
--- NOTE | 2023-01-26 12:47 | PC.NURSE ---
Report: Report called to [facility] at [facility]
== END 2023-01-26 13:45 | disposition hospice, home (50) | DRG 690 ==
LOC: ER 01-22 01:18 → MEDSURG 01-22 01:37
PROVIDERS: Admitting Provider Internal Medicine; Emergency Provider Emergency Medicine; PCP Family Medicine; Visit Provider Internal Medicine
DX: N30.00 Acute cystitis without hematuria (principal); G93.49 Other encephalopathy; B96.20 Unspecified Escherichia coli [E. coli] as the cause of diseases classified elsewhere; G30.9 Alzheimer's disease, unspecified; F02.80 Dementia in other diseases classified elsewhere, unspecified severity, without behavioral disturbance, psychotic disturbance, mood disturbance, and anxiety; Z74.01 Bed confinement status; Z86.73 Personal history of transient ischemic attack (TIA), and cerebral infarction without residual deficits; Z79.01 Long term (current) use of anticoagulants; I25.10 Atherosclerotic heart disease of native coronary artery without angina pectoris; I65.23 Occlusion and stenosis of bilateral carotid arteries; I65.01 Occlusion and stenosis of right vertebral artery; Z88.0 Allergy status to penicillin; I48.91 Unspecified atrial fibrillation; N18.9 Chronic kidney disease, unspecified; I12.9 Hypertensive chronic kidney disease with stage 1 through stage 4 chronic kidney disease, or unspecified chronic kidney disease; E78.5 Hyperlipidemia, unspecified; M48.062 Spinal stenosis, lumbar region with neurogenic claudication; Z66 Do not resuscitate
CPT/HCPCS: 36415; 36416; 70450; 70496; 70498; 71045; 76770; 80053; 81001; 82306; 82607; 82746; 82962; 84443; 84484; 85025; 85610; 87077; 87086; 87186; 87426; 92507; 92523; 92526; 92610; 93005; 96365; 96372; 99285; J0696; J1644; Q9967